=== PATIENT | female | born 1965 | race Caucasian/White ===

== ENCOUNTER → 2016-03-24 | Outpatient (CLI) | payer MEDICARE, OTHER ==
[2016-03-24 13:27] LABS: Aty Lym Flag Slight; Basophils % (A) 0 %; CH 24.2; CHCM 28.5; Eosinophils # (A) 0.1 k/uL (0-0.7); Eosinophils % (A) 2 %; HCT 35.7 % (34.0-46.0); HDW 2.75; HGB 10.6 gm/dL (11.4-16.0); Hypochromasia Marked; Luc # (Auto) 0.16; Luc % (Auto) 5; Lymphocytes # (A) 0.5 k/uL (1.0-4.8); Lymphocytes % (A) 15 %; MCH 25.3 pg (25.0-35.0); MCHC 29.6 g/dL (31.0-37.0); MCV 85.4 fL (80.0-100.0); Mean Platelet Volume 6.2; Monocytes # (A) 0.6 k/uL (0-1.0); Monocytes % (A) 18 %; Neutrophils # (A) 1.9 k/uL (1.3-7.7); Neutrophils % (A) 60 %; RBC 4.18 m/uL (3.80-5.40); WBC 3.2 k/uL (3.8-10.6); WBC (Perox) 3.23
[2016-03-24 13:29] LABS: Appearance,Urine Clear (Clear); Bilirubin,Urine Negative (Negative); Glucose,Urine (UA) Negative (Negative); Ketones,Urine Negative (Negative); Leukocyte Esterase,Urine Negative (Negative); Nitrite,Urine Negative (Negative); Protein,Urine Negative (Negative); Specific Gravity,Urine 1.012 (1.001-1.035); UA Billing (MACRO vs. MICRO) CHEM; Urobilinogen,Urine <2.0 mg/dL (<2.0)
[2016-03-24 13:45] LABS: Anion Gap 10 mmol/L; Blood Urea Nitrogen 17 mg/dL (7-17); Carbon Dioxide 27 mmol/L (22-30); Chloride 106 mmol/L (98-107); Glucose 70 mg/dL (74-99); Non-African American GFR(MDRD) >60 (>60 ml/min/1.73 sqM); Potassium 4.7 mmol/L (3.5-5.1); Sodium 143 mmol/L (137-145)
[2016-03-24 14:21] LABS: Manual Review Performed
== END | disposition home or self-care (01) ==
LOC: LABPAT 13:02
PROVIDERS: ATTEND Urology
DX: Z01.812 Encounter for preprocedural laboratory examination (principal); N39.3 Stress incontinence (female) (male); G35 Multiple sclerosis; R35.0 Frequency of micturition; Z79.899 Other long term (current) drug therapy
CPT/HCPCS: 80048; 81003; 85025; 87086

== ENCOUNTER 2016-03-30 10:00 | Day surgery (SDC) | payer MEDICARE, OTHER ==
[2016-03-25 11:26] VITALS: BMI 30.7
[~2016-03-30 10:00] MED LIST: AMPICILLIN 1,000 MG in SODIUM CHLORIDE 0.9% 50 ML IVPB ONE; GENTAMICIN 130 MG in SODIUM CHLORIDE 0.9% 100 ML IVPB ONE; HYDROmorphone 1 MG/ML 1 ML SYRINGE IVP PRN; LACTATED RINGERS 1,000 ML IV SCH; LIDOCAINE 1% 20 ML VIAL (10MG/ML) FOR IV START INTRADERMA PRN; ONDANSETRON 4 MG/2 ML VIAL IVP ONE
[2016-03-30] MEDS ORDERED: MIDAZOLAM 2 MG/2 ML VIAL ONE (11:55)
[2016-03-30] MEDS ORDERED: LIDOCAINE 1% INJ 10MG/ML (20 ML MDV) ONE (11:55)
[2016-03-30] MEDS ORDERED: SUCCINYLCHOLINE CHLORIDE 100 MG/5 ML SYR IV ONE (11:55)
[2016-03-30] MEDS ORDERED: PROPOFOL 10 MG/ML 20 ML VIAL IV ONE (11:55)
[2016-03-30] MEDS ORDERED: fentaNYL (PF) 50 MCG/ML 2 ML AMP ONE (11:55)
[2016-03-30] MEDS ORDERED: VASOPRESSIN 20 UNIT/ML 1 ML VIAL SQ ONE (12:19)
[2016-03-30] MEDS ORDERED: BACITRACIN 500 UNIT/GM OINT 28.4 GM TUBE TOPICAL ONE (12:54)
[2016-03-30] MEDS ORDERED: IBUPROFEN 800 MG TAB PO PRN (13:00)
[2016-03-30] MEDS ORDERED: ONDANSETRON 4 MG/2 ML VIAL IVP PRN (13:01)
--- NOTE | 2016-03-30 13:10 | P.OP ---
Date of Procedure: 03/30/16 Preoperative Diagnosis: Stress urinary incontinence, neurogenic bladder secondary to multiple sclerosis Postoperative Diagnosis: Same Procedure(s) Performed: Pubovaginal sling with cystoscopy Anesthesia: NOLAN Surgeon: Gordon Leach Estimated Blood Loss (ml): 50 Pathology: none sent Condition: stable Disposition: PACU Indications for Procedure: The patient is a 50-year-old female with a neurogenic bladder secondary to multiple sclerosis. She requires cleaning intermittent catheterization and as for several years. She has documented stress incontinence. She comes for a pubovaginal sling for her incontinence. This method was chosen because of the intermittent catheterization and the risk of infecting a transvaginal tape Description of Procedure: Patient is brought to the operating suite and given a successful general endotracheal anesthesia. She's placed lithotomy position with a sterile prep and drape. The labor sewn laterally to 0 silk. A batch packing was placed. The anterior vaginal mucosa was elevated off the submucosa with a mixture of 20 units of vasopressin in 200 mL of saline. A Kirk cath is introduced sterilely. Pfannenstiel incision is made. I dissect down the rectus fascia. She has had previous surgery in the rectus fascia therefore I cleaned off superiorly to inferiorly. I take a segment of rectus fascia and a vertical fashion to dates 2 cm wide by 8 cm long. I then closed the rectus fascia with 0 PDS. I then opened the anterior vaginal mucosa dissect lateral the bladder neck with Metzenbaum scissors bilaterally. I opened the endopelvic fascia. I then passed a me needles at the corners of the pubis down into the vaginal space bilaterally making sure not to injure the bladder. I had previously whipstitched 0 Prolene through the ends of the disc graft. I attached the Prolene stitches to the Stamey needles and pull the stitches back above the rectus fascia. I then secured the graft and the submucosal area at the level of the bladder neck. I tacked the stone with 3-0 Vicryl. I then removed the Kirk and inspect the bladder there is no injury. I then elevate the stitches over the rectus fascia and watch the bladder neck coapted and control the leakage. I then closed the vaginal mucosa with a running 2-0 Vicryl. I tied the Prolene stitches to one another over the rectus fascia. I closed the Pfannenstiel incision with a 3-0 Vicryl and a 4-0 Vicryl. A vaginal pack is place. The Kirk catheter urine is clear. The labial stitches are removed. The patient is awake and returned recovery room good condition. Blood loss is 50 mL.
[2016-03-30] MEDS ORDERED: LACTATED RINGERS 1,000 ML IV ONE ×2 (13:42)
[2016-03-30] MEDS: MORPHINE SULFATE 2 MG/ML SYRINGE IVP PRN ×2 (15:28→21:04)
[2016-03-30] MEDS: HYDROcodone/APAP 7.5-325MG 1 EACH TAB PO PRN (16:11)
[2016-03-30] MEDS: OXYBUTYNIN CHLORIDE 5 MG TAB PO SCH ×2 (17:11→20:55)
[2016-03-30] MEDS: DEXTROSE 5%-0.45% NACL 1,000 ML IV SCH (17:11)
[2016-03-30] MEDS: IMIPRAMINE 10 MG TAB PO SCH ×2 (17:11→20:53)
[2016-03-30] MEDS: KETOROLAC 30 MG/ML 1 ML VIAL IVP PRN (17:18)
[2016-03-30] MEDS: GABAPENTIN 400 MG CAP PO SCH (20:52)
[2016-03-31] MEDS: KETOROLAC 30 MG/ML 1 ML VIAL IVP PRN ×2 (00:08→07:29)
[2016-03-31] MEDS: HYDROcodone/APAP 7.5-325MG 1 EACH TAB PO PRN ×2 (04:35→12:02)
[2016-03-31] MEDS: DEXTROSE 5%-0.45% NACL 1,000 ML IV SCH (04:40)
[2016-03-31] MEDS ORDERED: PANTOPRAZOLE 40 MG TABLET PO SCH (07:30)
[2016-03-31 07:37] VITALS: BP 110/75; PULSE 113; RESP 18; TEMP 97.9
[2016-03-31] MEDS: GABAPENTIN 400 MG CAP PO SCH (08:27)
[2016-03-31] MEDS: OXYBUTYNIN CHLORIDE 5 MG TAB PO SCH (08:27)
[2016-03-31] MEDS: IMIPRAMINE 10 MG TAB PO SCH (08:27)
[2016-03-31] MEDS ORDERED: [UNRECOGNIZED DRUG - OTHER] PO SCH (09:00)
[2016-03-31] MEDS ORDERED: DULoxetine HCL 60 MG CAPSULE.DR PO SCH (09:00)
[2016-03-31] MEDS ORDERED: LISINOPRIL-HCTZ 10-12.5 MG 1 EACH TAB PO SCH (09:00)
--- NOTE | 2016-03-31 11:29 | P.DS ---
Providers Attending physician: Gordon Leach Primary care physician: [facility] Course: The patient was brought into the hospital 03/30/2016 a cystoscopy and pubovaginal sling for stress urinary incontinence. She underwent this without difficulty. Postoperatively she had some moderate pain as expected from the autologous graft from her rectus fascia. She voided some with a 300 mL residual which she catheterizes without difficulty. Her pain is under control and she wishes to be discharged home. She'll be discharged home care of family limited activity. She'll follow-up in the office in one week. She'll continue with clean intermittent catheterization as needed. Pain medicine with [place] prescribed. Condition is good diet is regular activities Limited. Patient Condition at Discharge: Good Plan - Discharge Summary New Discharge Prescriptions: Hydrocodone/Acetaminophen [[place] 7.5-325] 1 each PO Q4HR PRN #30 tab PRN Reason: Pain Control Discharge Medication List Imipramine HCl [Tofranil] 10 mg PO TID 01/15/14 [History] Oxybutynin Chloride [Ditropan] 5 mg PO TID 01/15/14 [History] Gabapentin [Neurontin] 800 mg PO BID 12/21/15 [History] Hydrocodone/Acetaminophen [[place] 7.5-325] 1 tab PO Q6HR PRN 12/21/15 [History] Ibuprofen [Motrin] 800 mg PO TID PRN 12/21/15 [History] Lisinopril-Hctz 10-12.5 mg [Zestoretic 10-12.5] 1 tab PO QAM 12/21/15 [History] DULoxetine HCL 60 mg PO QAM 03/25/16 [History] Multivitamins, Thera [Multivitamin] 1 each PO DAILY 03/25/16 [History] Omeprazole 40 mg PO QAM 03/25/16 [History] L.acidoph,Paracasei, B.lactis [Probiotic] 1 each PO DAILY 03/29/16 [History] Fingolimod HCl [[place]en[place]] 1 cap PO DAILY 03/30/16 [History] Hydrocodone/Acetaminophen [[place] 7.5-325] 1 each PO Q4HR PRN #30 tab 03/31/16 [ Rx] Follow up Appointment(s)/Referral(s): Gordon Leach MD [STAFF PHYSICIAN] - 1 Week
== END 2016-03-31 13:27 | disposition home or self-care (01) ==
LOC: OR 10:00 → 6PED 13:11 → OR 03-31 13:27
PROVIDERS: ATTEND Urology
DX: N31.8 Other neuromuscular dysfunction of bladder (principal); N39.3 Stress incontinence (female) (male); G35 Multiple sclerosis; I10 Essential (primary) hypertension; M79.7 Fibromyalgia; F41.9 Anxiety disorder, unspecified; Z79.899 Other long term (current) drug therapy; Z79.891 Long term (current) use of opiate analgesic
CPT/HCPCS: 57288; J2250; J2405; J2001; J3010; J1885 ×2; J1580; J0290; J2270; J0330; J2704

== ENCOUNTER → 2016-06-06 | Outpatient (CLI) | payer MEDICARE, OTHER ==
--- NOTE | 2016-06-06 15:45 | MR ---
MR lumbar spine wo con LBP radiating down rt leg, no trauma/surgery; Prior MR/xray on pacs Multiplanar, multiecho imaging of the lumbar spine was obtained without contrast on a 3 Michaela magnet. REFERENCE: Previous study dated 06/13/2011. FINDINGS: Paraspinal soft tissues are normal. There is a moderate levoscoliosis. This has worsened slightly from the previous study. There are degenerative grade 1 listhesis of L3 on L4 and L4 and L5. These were not present previously . Vertebral body height and alignment otherwise normal. Cord signal is normal. The conus ends normall y at the level of the superior endplate of L1. At T12-L1, there is capsulitis within the facets. At L1-2, there is hypertrophic change and capsulitis within the facets. At L2-3, there is disc space loss and disc desiccation. There is a broad-based disc displacement exte nding into the inner vertebral foramina causing mild, bilateral intervertebral foraminal narrowing, w orse on the right than the left. There is hypertrophic change and capsulitis within the facets. At L3-4, the intervertebral foramina are reasonably well-maintained. There is disc space loss and dis c desiccation. There is a broad-based disc displacement. There is a grade 1 spondylolisthesis. There is a pseudodisc. There are marked hypertrophic changes and capsulitis within the facets. At L4-5, there is a degenerative grade 1 spondylolisthesis. There is an associated pseudodisc. There is disc space loss. There is bilateral intervertebral foraminal narrowing, worse on the right than th e left. There are marked hypertrophic changes and capsulitis within the facets. At L5-S1, there is disc space loss and disc desiccation. The intervertebral foramina are well maintai vannessa. There is a left paracentral disc displacement mildly deforming the thecal sac. There is hypertro phic change and capsulitis within the facets. IMPRESSION: 1. DIFFUSE DEGENERATIVE DISC DISEASE AND FACET ARTHROPATHY. 2. MULTILEVEL INTERVERTEBRAL FORAMINAL NARROWING. 3. DEGENERATIVE GRADE 1 LISTHESIS OF L3 ON L4 AND L4 ON L5. 4. LEVOSCOLIOSIS. 5. THE APPEARANCE OF THE SPINE HAS WORSENED CONSIDERABLY FROM THE PREVIOUS STUDY.
== END ==
LOC: RADMRIMAIN 14:30
PROVIDERS: ATTEND Psychiatry & Neurology Pain Medicine
DX: M51.36 Other intervertebral disc degeneration, lumbar region (principal); M46.96 Unspecified inflammatory spondylopathy, lumbar region; M51.37 Other intervertebral disc degeneration, lumbosacral region; M99.73 Connective tissue and disc stenosis of intervertebral foramina of lumbar region; M43.16 Spondylolisthesis, lumbar region
CPT/HCPCS: 72148

== ENCOUNTER → 2016-07-05 | Outpatient (CLI) | payer MEDICARE, OTHER ==
--- NOTE | 2016-07-05 16:13 | XR ---
EXAMINATION TYPE: XR foot complete RT, XR ankle complete RT DATE OF EXAM: 07/05/2016 4:04 PM CLINICAL HISTORY: pain TECHNIQUE: Frontal, lateral and oblique images of the right foot and ankle are obtained. COMPARISON: None. FINDINGS: There is no acute fracture/dislocation evident. Ankle mortise is intact. Screw fixation is noted to involve the midfoot at the level of the first cuneiform extending into the base of the seco nd metatarsal. Degenerative midfoot narrowing is seen. The overlying soft tissue appears unremarkable . IMPRESSION: There is no acute fracture or dislocation. ICD 10 NO FRACTURE, INITIAL EVALUATION
== END | disposition home or self-care (01) ==
LOC: RADXRMAIN 15:42
PROVIDERS: ATTEND Psychiatry & Neurology Pain Medicine
DX: M25.571 Pain in right ankle and joints of right foot (principal)

== ENCOUNTER → 2016-07-26 | Outpatient (CLI) | payer MEDICARE, OTHER ==
--- NOTE | 2016-07-26 09:18 | CT ---
EXAMINATION TYPE: CT abdomen pelvis w con DATE OF EXAM: 07/26/2016 8:59 AM COMPARISON: NONE HISTORY: Incisional hernia CT DLP: 1125.70 mGycm CONTRAST: CT scan of the abdomen and pelvis is performed with Oral Contrast and with IV Contrast, patient injec corrina with 100 mL of Omnipaque 300. FINDINGS: LUNG BASES-: No visible nodule. No infiltrate. Calcified subcarinal lymph nodes. Breast implants. Be intact. LIVER/GB: Cholecystectomy clips are in place. Nonspecific 1.1 cm hypoattenuating lesion at the dome of the liver may reflect a small cyst. Consider ultrasound correlation. Mild intrahepatic biliary du ctal prominence likely postoperative in nature. PANCREAS: No inflammation. No distinct mass. SPLEEN: No splenic enlargement. No lesion seen. ADRENALS: No nodule. No thickening. KIDNEYS/BLADDER: No hydronephrosis. No nephrolithiasis. No disctinct renal mass. Urinary bladder g rossly unremarkable. BOWEL: Moderate fecal stasis. Normal bowel caliber. No inflammation. GENITAL ORGANS: No gross abnormality. LYMPH NODES: No greater than 1cm abdominal or pelvic lymph nodes are appreciated. AORTA: No significant abnormality. OSSEOUS STRUCTURES: No significant abnormality is seen. OTHER: Low anterior abdominal midline postoperative change and small seroma measuring 2.1 cm. Small f at-containing umbilical hernia. No definite incisional hernia appreciated at this time. Multiple supe rficial subcutaneous varices noted. IMPRESSION: 1. Low anterior abdominal midline postoperative change and small seroma measuring 2.1 cm. 2.Small fat-containing umbilical hernia. No definite incisional hernia appreciated.
== END | disposition home or self-care (01) ==
LOC: RADCTMAIN 08:13
PROVIDERS: ATTEND Surgery
DX: K44.9 Diaphragmatic hernia without obstruction or gangrene (principal); S30.1XXA Contusion of abdominal wall, initial encounter
CPT/HCPCS: 74177; Q9967

== ENCOUNTER → 2016-08-02 | Outpatient (CLI) | payer MEDICARE, OTHER ==
--- NOTE | 2016-08-03 09:08 | WWHP ---
DATE OF DICTATION: 08/02/16. CHIEF COMPLAINT: Patient is here for her routine gynecologic exam and mammogram. HPI: This is a 50-year-old G3, P2-0-1-2 with an LMP of 2004. She is status post endometrial ablation in 2004 and has been amenorrheic since then. She denies any significant hot flashes. He has been using condoms for control. It has been about 5 years since her last pelvic exam. PAST MEDICAL HISTORY: Multiple sclerosis, chronic hypertension, obesity, neurogenic bladder, gastroesophageal reflux disease, depression. Her right hip arthritis, elevated liver enzymes and umbilical hernia. MEDICATIONS: Cymbalta 60 mg daily. Omeprazole 40 mg daily. Imipramine 10 mg t.i.d., Ditropan 5 mg t.i.d., ibuprofen 800 mg t.i.d., lisinopril with hydrochlorothiazide 100/12.5 mg daily. Remeron 15 mg daily p.r.n. [place] 7.5 mg t.i.d. p.r.n. ALLERGIES: No known drug allergies. PAST SURGICAL HISTORY: Gastric bypass surgery in 1999 Abdominoplasty in 2003, bilateral breast implants in 2003. Bladder sling procedure 2016, cholecystectomy in the past. POST OB HISTORY: One voluntary termination of followed by two vaginal deliveries. PAST [employer] HISTORY: She is status post endometrial ablation in 2004 and has been amenorrheic since then. She has no history of STDs. SOCIAL HISTORY: She denies tobacco, alcohol, and drug use. She is and has been with her boyfriend since 2016. She is sexually active. 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 FAMILY HISTORY: Father has coronary artery disease, several aunts also had MIs. Son has ulcerative colitis. REVIEW OF SYSTEMS: She believes she has gained close to 30 pounds over the last year. She denies respiratory, cardiac, or GI problems. PHYSICAL EXAM: Blood pressure 120/78. Height 5 feet 6 inches. Weight 215 pounds. Temperature 96.7, pulse 89 is a well-developed, well-nourished white female who is alert and oriented x3 in no acute distress. HEENT is within normal limits. NECK: There is palpable lymph node to the left of the midline measuring approximately 6 mm this is smooth and mobile and nontender. She states she has had this for more than one year. CHEST AND LUNGS: Clear to auscultation. HEART: Regular rate and rhythm. Breasts are consistent with bilateral implants. There are no masses or tenderness. Axillary exam is negative for adenopathy. BACK: Negative for CVA tenderness. ABDOMEN: Soft, nontender, without palpable masses. PELVIC EXAM: External genitalia within normal limits. Cervix and vagina appear normal without significant atrophy and no significant prolapse is noted. The uterus is midposition, nongravid size and nontender. There are no palpable adnexal masses or tenderness. Rectovaginal exam is negative for mass or tenderness and is negative for occult blood. EXTREMITIES: Nontender. IMPRESSION: A 50-year-old female with amenorrhea secondary for endometrial ablation. Possible perimenopausal menopause. PLAN: 1. Pap smear was performed. 2. Self breast examination was discussed. 3. Mammogram will be done today. 4. FSH will be drawn. We will use this to determine if she is menopausal. If it is less than 50. I will recommend that she continue to use contraception such as condoms. 5. She will return in one year.
--- NOTE | 2016-08-04 09:22 | MM ---
Reason for exam: screening (asymptomatic). Baseline mammogram. History: Retro-pectoral silicone gel implants in both breasts, 2001. Took hormonal contraceptives beginning at age 16. Physical Findings: Dr. Arreaga did not find any significant physical abnormalities on exam. MG Screening Mammo Implant/CAD Bilateral CC and MLO view(s) were taken. Port on left. There is no discrete abnormality. Bilateral implants. These results were verbally communicated with the patient and result sheet given to the patient on 08/02/16. ASSESSMENT: Negative, BI-RAD 1 RECOMMENDATION: Routine screening mammogram of both breasts in 1 year.
== END | disposition home or self-care (01) ==
LOC: WWCWWP 13:46
PROVIDERS: ATTEND Obstetrics & Gynecology
DX: Z12.31 Encounter for screening mammogram for malignant neoplasm of breast (principal); N91.1 Secondary amenorrhea
CPT/HCPCS: 83001; 36415; G0202

== ENCOUNTER → 2016-12-01 | Outpatient (CLI) | payer MEDICARE, OTHER ==
[2016-12-01 15:46] LABS: Anisocytosis Slight; Basophils % (A) 0 %; CH 22.9; CHCM 29.7; Eosinophils % (A) 1 %; HCT 30.3 % (34.0-46.0); HGB 8.9 gm/dL (11.4-16.0); Hypochromasia Marked; Luc # (Auto) 0.16; Luc % (Auto) 4; Lymphocytes # (A) 0.5 k/uL (1.0-4.8); Lymphocytes % (A) 11 %; MCH 22.9 pg (25.0-35.0); MCHC 29.5 g/dL (31.0-37.0); MCV 77.4 fL (80.0-100.0); Mean Platelet Volume 7.8; Microcytosis Slight; Monocytes # (A) 0.4 k/uL (0-1.0); Monocytes % (A) 9 %; Neutrophils # (A) 3.4 k/uL (1.3-7.7); Neutrophils % (A) 76 %; RBC 3.91 m/uL (3.80-5.40); RDW 16.2 % (11.5-15.5); WBC 4.5 k/uL (3.8-10.6); WBC (Perox) 4.76
== END | disposition home or self-care (01) ==
LOC: LABPAT 14:26
PROVIDERS: ATTEND Obstetrics & Gynecology
DX: Z01.810 Encounter for preprocedural cardiovascular examination (principal); Z01.812 Encounter for preprocedural laboratory examination; I10 Essential (primary) hypertension; C54.1 Malignant neoplasm of endometrium
CPT/HCPCS: 36415; 85025; 93005

== ENCOUNTER → 2016-12-01 | Outpatient (CLI) | payer MEDICARE, OTHER ==
[2016-12-01 16:19] LABS: Hepatitis B Surface Ag Index 0.05
[2016-12-01 19:35] LABS: Hepatitis B Surface Antibody Non-Reactive (Non-Reactive)
== END | disposition home or self-care (01) ==
LOC: LABWHC1 14:29
PROVIDERS: ATTEND Psychiatry & Neurology Neurology
DX: G35 Multiple sclerosis (principal); Z02.89 Encounter for other administrative examinations
CPT/HCPCS: 36415; 86704; 86705; 86706; 87340

== ENCOUNTER 2016-12-06 07:58 | Day surgery (SDC) | payer MEDICARE, OTHER ==
[2016-12-02 11:03] VITALS: BMI 34.7
--- NOTE | 2016-12-05 17:22 | HP ---
HISTORY AND PHYSICAL HISTORY OF PRESENT ILLNESS: The patient is a 51-year-old 3, para 2-0-1-2 admitted to the office initially with findings of an ASCUS, positive HPV, Pap smear. She underwent colposcopy which was negative. However endocervical curettage done at that time, demonstrated CIN2. Given the findings of at least moderate dysplasia, the patient was counseled regarding the need for further sampling with surgical biopsy and agrees to proceed with cold knife conization of the cervix. PAST MEDICAL HISTORY: Significant for arthritis, asthma, depression, reflux, hypertension, multiple sclerosis, neurogenic bladder, obesity and umbilical hernia. PAST SURGICAL HISTORY: History significant for abdominal plasty in 2001. She additionally had a breast augmentation and lift as well as a [place] suburethral sling. She has additionally undergone gastric bypass in the past. There was also a D&C, as well as cholecystectomy. There were no apparent anesthetic concerns. OBSTETRICAL HISTORY: 3, para 2-0-1-2 with 2 term vaginal deliveries without complications. Current method of contraception is condoms. GYNECOLOGIC HISTORY: History is unremarkable with no history of any infections to include STDs. FAMILY HISTORY: Noncontributory. SOCIAL HISTORY: The patient is and a nonsmoker. She reports occasional alcohol. Denies any other social concerns. CURRENT MEDICATIONS: Include: 1. Cymbalta 60 mg daily. 2. Ibuprofen 3 times daily p.r.n. 3. Imipramine 10 mg daily. 4. Lisinopril/hydrochlorothiazide 10/12.5 mg daily. 5. Neurontin 800 mg 3 times daily. 6. Omeprazole 40 mg daily. 7. Remeron 15 mg q.h.s. p.r.n. ALLERGIES: No known drug allergies. REVIEW OF SYSTEMS: Is confined to history of present illness. PHYSICAL EXAMINATION: Vital signs are stable. The patient is afebrile. In general, this is a well- developed, well-nourished, white female, in no acute distress. Her heart has regular rhythm and rate without murmur. Her lungs are clear to auscultation bilaterally in all weems. Her abdomen is nondistended, has normoactive bowel sounds, soft, nontender, and without any palpable masses, hepatosplenomegaly, or hernias. Her extremities are without any cyanosis, clubbing, or edema. Nontender to palpation. Pelvic examination demonstrates normal external genitalia and the BUS with normal vaginal mucosa to inspection and palpation. There is no cervical motion tenderness. Uterus is normal in size and shape without any apparent masses. The adnexa are normal. Nontender without mass bilaterally. ASSESSMENT AND PLAN: Moderate endocervical dysplasia: We have discussed options and she has agreed to undergo cold knife conization of the cervix. Risks and complications of the procedure have been discussed at length including risks for bleeding, bleeding requiring transfusion, infection, and injury to local structures, specifically to include cervical stenosis or incompetence. She has understood all this and agreed to proceed and we are scheduled for the morning of December 06, 2016. MMODL / IJN: [id number] /
[~2016-12-06 07:58] MED LIST changes: -AMPICILLIN 1,000 MG in SODIUM CHLORIDE 0.9% 50 ML IVPB ONE; +DEXAMETHASONE SOD PHOSPHATE 10 MG/ML 1 ML VIAL IV ONE; -GENTAMICIN 130 MG in SODIUM CHLORIDE 0.9% 100 ML IVPB ONE; +MIDAZOLAM 2 MG/2 ML VIAL IV PRN; +Pre Op ABX Message 1 EACH MISC MISCELLANE ONE; +SCOPOLAMINE 1.5MG/72HR PATCH TRANSDERM ONE
[2016-12-06] MEDS ORDERED: Acetaminophen-Codeine 300-30mg TAB PO PRN ×2 (08:31)
[2016-12-06] MEDS ORDERED: diphenhydrAMINE 50 MG/ML 1 ML VIAL IVP PRN (08:31)
[2016-12-06] MEDS ORDERED: METOCLOPRAMIDE 5 MG/ML 2 ML VIAL IVP PRN (08:31)
[2016-12-06] MEDS ORDERED: ONDANSETRON 4 MG/2 ML VIAL IVP PRN (08:31)
[2016-12-06] MEDS ORDERED: SIMETHICONE 80 MG CHEWABLE PO PRN (08:31)
[2016-12-06] MEDS ORDERED: KETOROLAC 30 MG/ML 1 ML VIAL IVP PRN (08:31)
[2016-12-06] MEDS ORDERED: LACTATED RINGERS 1,000 ML IV SCH (08:45)
[2016-12-06] MEDS ORDERED: SUCCINYLCHOLINE CHLORIDE 100 MG/5 ML SYR IV ONE (09:02)
[2016-12-06] MEDS ORDERED: MIDAZOLAM 2 MG/2 ML VIAL ONE (09:02)
[2016-12-06] MEDS ORDERED: ePHEDrine SULFATE/0.9% NACL/PF 50 MG/5 ML SYRINGE IV ONE (09:02)
[2016-12-06] MEDS ORDERED: fentaNYL (PF) 50 MCG/ML 2 ML AMP ONE (09:02)
[2016-12-06] MEDS ORDERED: LIDOCAINE 1% INJ 10MG/ML (20 ML MDV) ONE (09:02)
[2016-12-06] MEDS ORDERED: PROPOFOL 10 MG/ML 20 ML VIAL IV ONE (09:02)
[2016-12-06] MEDS ORDERED: PHENYLEPHRINE-0.9% NACL SYG 1 MG/10 ML SYRINGE ONE (09:02)
[2016-12-06] MEDS ORDERED: FERRIC SUBSULFATE (MONSELS) JAR TOPICAL ONE (09:26)
[2016-12-06] MEDS ORDERED: IODINE/POTASS IOD (LUGOLS) BTL TOPICAL ONE (09:32)
[2016-12-06] MEDS ORDERED: LACTATED RINGERS 1,000 ML IV ONE (09:37)
--- NOTE | 2016-12-06 09:43 | P.OP ---
Date of Procedure: 12/06/16 Preoperative Diagnosis: #1. Endocervical moderate dysplasia Postoperative Diagnosis: Same Procedure(s) Performed: Knife conization of the cervix Anesthesia: PAMA Surgeon: Sage Sherwood Estimated Blood Loss (ml): 5 IV fluids (ml): 800 Urine output (ml): 40 Pathology: other (Cervical cone) Condition: stable Disposition: PACU Operative Findings: There was no ectocervical staining of the cervix with Lugol's iodine present. There was adequate cervical descensus for vaginal hysterectomy should become necessary in the future. The cervical cone was removed to a depth of approximately 2 cm x 1.5 cm x 1.5 cm across in each dimension. The endocervical canal was noted to be within the center. Description of Procedure: The patient was prepped and draped in usual fashion after general endotracheal anesthesia was admission by the anesthesiologist. A weighted speculum was placed in the bladder draining approximate 40 mL of clear scott urine. The cervix was grasped with a single-tooth tenaculum allowing placement of surgical stay sutures from 10:00 to 8:00 and 2:00 to 4:00 at the cervical vaginal junction on each side where there were firmly tied down using 0 Vicryl. The stay sutures were used for traction and Lugol's iodine used to paint the entire cervix. There was no ectocervical staining noted. The patient has undergone an endometrial ablation in the past and I was unable to place the uterine sound safely. As result from the cone was freehanded. A margin was taken around the opening of the cervix to a depth of approximately 2 cm circumferentially. An Allis clamp was applied to the cone from anterior to posterior and a second Allis utilized to elevate the anterior lip. This allowed me to put downward traction on the cone and identify the base which was then transected with the scalpel. The colon was not marked. The endocervical canal was noted to be in the center of the cone and it was intact. The base of the cone was then cauterized from the deep margin to the ectocervical margin using ball cautery. One large Q-tip of Monsel solution was then placed within the bed and left in place for approximately 1 minute. Once removed there was no ongoing bleeding. The stay sutures were left in place but trimmed short. Estimated blood loss for the entire case was less than 5 mL. There were no complications. All sponge, instrument, and needle counts were correct. The patient tolerated the procedure well and proceeded to the recovery room in stable condition. The patient is a candidate for vaginal instructed he should it become necessary in the future.
[2016-12-06 09:58] VITALS: TEMP 97
[2016-12-06 10:45] VITALS: RESP 18
[2016-12-06 11:01] VITALS: BP 131/73; PULSE 90
== END 2016-12-06 11:25 | disposition home or self-care (01) ==
LOC: OR 07:58
PROVIDERS: ATTEND Obstetrics & Gynecology
DX: N87.1 Moderate cervical dysplasia (principal); E66.9 Obesity, unspecified; F32.9 Major depressive disorder, single episode, unspecified; G35 Multiple sclerosis; I10 Essential (primary) hypertension; J45.909 Unspecified asthma, uncomplicated; K21.9 Gastro-esophageal reflux disease without esophagitis; Z98.84 Bariatric surgery status; Z79.899 Other long term (current) drug therapy; M79.7 Fibromyalgia
CPT/HCPCS: 57520; 81025; 88342; 88307; J2250; J1100; J2405; J2001; J3010; J2370; J0330; J2704

== ENCOUNTER → 2017-02-17 | Outpatient (CLI) | payer MEDICARE, OTHER ==
[2017-02-17 17:21] LABS: Anisocytosis Slight; Aty Lym Flag Slight; CH 22.1; CHCM 27.9; HCT 31.3 % (34.0-46.0); HDW 2.85; HGB 8.7 gm/dL (11.4-16.0); Hypochromasia Marked; MCH 22.2 pg (25.0-35.0); MCV 79.5 fL (80.0-100.0); Mean Platelet Volume 6.6; Microcytosis Slight; RBC 3.93 m/uL (3.80-5.40); RDW 16.3 % (11.5-15.5); WBC 2.2 k/uL (3.8-10.6); WBC (Perox) 2.14
[2017-02-17 17:40] LABS: ALT 39 U/L (9-52); AST 24 U/L (14-36); Alkaline Phosphatase 172 U/L (38-126); Anion Gap 9 mmol/L; Blood Urea Nitrogen 13 mg/dL (7-17); Calcium 9.3 mg/dL (8.4-10.2); Carbon Dioxide 22 mmol/L (22-30); Chloride 105 mmol/L (98-107); Glucose 88 mg/dL (74-99); Non-African American GFR(MDRD) >60 (>60 ml/min/1.73 sqM); Potassium 3.7 mmol/L (3.5-5.1); Sodium 136 mmol/L (137-145); Total Bilirubin 0.2 mg/dL (0.2-1.3); Total Protein 5.9 g/dL (6.3-8.2)
[2017-02-17 18:00] LABS: Add Differential Manual Differential
[2017-02-17 18:11] LABS: Nucleated Red Blood Cells 0 /100 WBC (0-0); Polychromasia Present; Total Cells Counted 100
[2017-02-24 08:32] LABS: Mis test requested (Blood) STRATIFY JCV AB
== END | disposition home or self-care (01) ==
LOC: LABWHC1 16:10
PROVIDERS: ATTEND Psychiatry & Neurology Pain Medicine
DX: G35 Multiple sclerosis (principal)
CPT/HCPCS: 36415; 80053; 80074; 82306; 84439; 84443; 84481; 85025

== ENCOUNTER → 2017-03-29 | Outpatient (CLI) | payer MEDICARE, OTHER ==
[2017-03-29 19:20] LABS: Folate, Serum 9.8 ng/mL
[2017-03-30 14:11] LABS: Vitamin B6 18 ug/L (5-50)
[2017-03-31 02:44] LABS: Vitamin B1 32 ug/L (38-122)
[2017-04-07 12:11] LABS: Nicotinuric Acid None Detected
== END | disposition home or self-care (01) ==
LOC: LABWHC1 13:16
PROVIDERS: ATTEND Psychiatry & Neurology Pain Medicine
DX: R53.83 Other fatigue (principal); G35 Multiple sclerosis
CPT/HCPCS: 36415; 82607; 82746; 84207; 84425; 84591

== ENCOUNTER → 2017-05-22 | Outpatient (CLI) | payer MEDICARE, OTHER ==
[2017-05-22 11:04] LABS: Blood Urea Nitrogen 13 mg/dL (7-17)
--- NOTE | 2017-05-22 21:37 | MR ---
EXAMINATION TYPE: MR brain/cspine wo DATE OF EXAM: 05/22/2017 COMPARISON: No prior MRI at this institution. If outside study becomes available an addendum may be i ssued. CT brain June 23, 2014. HISTORY: Multiple sclerosis. TECHNIQUE: Multiplanar, multisequence images of the cervical spine, brain and brainstem are all performed withou t IV contrast, IV contrast could not be given as IV access could not be obtained despite several atte mpts. Demyelinating disease protocol with additional Sagittal Flair sequence performed of the brain and brainstem and PD sagittal sequences of cervical spine all acquired. FINDINGS: BRAIN: T2 Lesions Present : Yes Approximate Number of Lesions: Difficult to accurately count due to confluent appearance at the the b and periventricular levels Locations Identified : No infratentorial lesions identified Size of Reference Lesion(s): 1. 0.8 cm x 0.3 cm x 0.6 cm on axial image 21 and sagittal image 24 high right frontal subcortical l esion Enhancing Lesion(s) Present: N/A T1 Hypointense Lesion(s) Present: Yes Change from Prior: N/A Diffusion weighted images demonstrate no evidence of a recent infarct or other diffusion abnormality. There is no worrisome extra-axial fluid collection. There is ventricular and sulcal prominence cons istent with diffuse age-related cerebral atrophy. Midline structures demonstrate normal morphology. The craniocervical junction appears within normal limits. Normal vascular flow voids are present.. The dural venous sinuses appear patent. The visuali zed sinuses are clear and the globes are intact. IMPRESSION: Moderate to severe nonspecific white matter changes most likely on basis of patient's kno wn multiple sclerosis. If outside study becomes available an addendum may be issued. C-SPINE: Exam noted suboptimal as there is significant motion artifact. Patient repeatedly fell aslee p and moved despite multiple warnings from technologist. FINDINGS: Sagittal images of the cervical spine show the craniocervical junction to appear within nor mal limits. The cervical and upper thoracic spinal cord is normal in caliber and course. Artifact ex amination limits evaluation for focal T2 hyperintense lesions . Vertebral alignment is anatomic. The vertebral body and intravertebral disk heights are normal. Tiny posterior disc herniations are seen C5-C6 and C6-C7 level on sagittal image 8. The bone marrow signal intensity is within normal limits. No significant spurring is seen. Axial images show significant artifact and rotation limiting evaluation for abnormal spinal cord lesi ons. Does appear to be broad based disc protrusion effacing anterior thecal sac at C5-C6 and C6-C7 le vels. There is mild to moderate bilateral neural foraminal narrowing at C5-C6 level. IMPRESSION: Suboptimal study as detailed above particularly for evaluating for demyelinating plaques.
== END | disposition home or self-care (01) ==
LOC: RADMRIMAIN 10:24
PROVIDERS: ATTEND Psychiatry & Neurology Pain Medicine
DX: R90.82 White matter disease, unspecified (principal); M50.222 Other cervical disc displacement at C5-C6 level; M99.73 Connective tissue and disc stenosis of intervertebral foramina of lumbar region
CPT/HCPCS: 36415; 70551; 72141; 82565; 84520

== ENCOUNTER 2017-06-14 08:24 | Inpatient (IN) | payer MEDICARE, OTHER ==
[2017-06-14] MEDS ORDERED: ONDANSETRON 4 MG/2 ML VIAL IVP STA (08:57)
[2017-06-14] MEDS ORDERED: SODIUM CHLORIDE 0.9% 1,000 ML IV STA (08:57)
[2017-06-14] MEDS ORDERED: MORPHINE SULFATE/PF 10MG/10ML VL IV STA (08:57)
[2017-06-14] MEDS ORDERED: methylPREDNISolone SOD SUCCI 125 MG/2 ML VIAL IV STA (09:09)
[2017-06-14 09:38] LABS: Anisocytosis Slight; Basophils % (A) 0 %; Eosinophils # (A) 0.1 k/uL (0-0.7); Eosinophils % (A) 1 %; HCT 35.5 % (34.0-46.0); Hypochromasia Moderate; Lymphocytes # (A) 0.5 k/uL (1.0-4.8); Lymphocytes % (A) 7 %; MCH 22.2 pg (25.0-35.0); MCV 71.7 fL (80.0-100.0); Mean Platelet Volume 6.2; Microcytosis Moderate; Monocytes # (A) 0.4 k/uL (0-1.0); Monocytes % (A) 6 %; Neutrophils # (A) 5.9 k/uL (1.3-7.7); Neutrophils % (A) 85 %; Platelet Count 474 k/uL (150-450); RBC 4.95 m/uL (3.80-5.40); RDW 16.4 % (11.5-15.5)
--- NOTE | 2017-06-14 09:44 | ED ---
General Adult HPI - General Chief complaint: Back Pain/Injury Stated complaint: MS flare up Time Seen by Provider: 06/14/17 08:43 Source: patient, RN notes reviewed Mode of arrival: wheelchair Limitations: no limitations - History of Present Illness Initial comments: Patient 51-year-old female seen with a past medical history for MS, chronic low back pain, presenting to the emergency room today with a chief complaint of increased pain in her lower back and right hip. She does not that she's had pain radiating to the right hip approximately the right knee. She states she's had this in the past. States that she's been following up with orthopedics seen both the surgeon and pain specialist there. Sensation schedule have a injection of the L3 area she has a herniated disc that was seen on MRI back in April 2017. Patient states that she is currently out of pain medication she was taking [place]. Patient admits that she has a history of MS. She states that when she has a infection she always gets a flareup of her MS. She states she noticed she had a cold sore in her nose and now on the upper lip on the right side. She states that this started a week ago. She states that she has had increased weakness to her lower legs bilaterally. She states she's had this in the past with her MS. She states she has seen neurologist Dr. Azul for this. Patient admits that she most recently follow-up orthopedics Dr. Blas this past Monday just 3 days ago. Patient states she was advised that she is weight for injection. Patient denies any bowel or bladder incontinence retention. She does admit that she straight caths herself due to neurogenic bladder issues. Patient does not that she had some diarrhea yesterday. She denies any abdominal pain. Admits to pain in her lower back. States she's had weakness in the legs and a few falls nothing recently. Patient mitts that she' s felt a pop in the right hip last week and this seemed to set some of these symptoms off as it got worse this past week. She states that it difficult time with any ambulation under her own power. 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 Patient denies any saddle anesthesia. Patient denies any other complaints or symptoms at this time. Denies any recent fever, chills, shortness breath, chest pain, nausea or vomiting, headache , isn't changes - Related Data Home Medications Medication Instructions Recorded Confirmed Imipramine HCl [Tofranil] 10 mg PO TID 01/15/14 06/14/17 Oxybutynin Chloride [Ditropan] 5 mg PO TID 01/15/14 06/14/17 Gabapentin [Neurontin] 800 mg PO TID 12/21/15 06/14/17 Ibuprofen [Motrin] 800 mg PO TID PRN 12/21/15 06/14/17 Lisinopril-Hctz 10-12.5 mg 1 tab PO QAM 12/21/15 06/14/17 [Zestoretic 10-12.5] DULoxetine HCL 60 mg PO QAM 03/25/16 06/14/17 L.acidoph,Paracasei, B.lactis 1 cap PO DAILY 03/29/16 06/14/17 [Probiotic] HYDROcodone/APAP 10-325MG [[place] 1 tab PO TID PRN 12/02/16 06/14/17 10-325] Fingolimod HCl [Gilenya] 0.5 mg PO DAILY 06/14/17 06/14/17 Allergies Allergy/AdvReac Type Severity Reaction Status Date / Time walnut Allergy Intermediate tongue and Verified 06/14/17 08:45 throat itch cantaloupe Allergy Intermediate tongue and Uncoded 06/14/17 08:34 throat itches Review of Systems ROS Statement: Those systems with pertinent positive or pertinent negative responses have been documented in the HPI. ROS Other: All systems not noted in ROS Statement are negative. Past Medical History Past Medical History: Asthma, Fibromyalgia, GERD/Reflux, Hypertension, Musculoskeletal Disorder, Pneumonia Additional Past Medical History / Comment(s): 06/24/14 Pt presented to [facility] ER via EMS on 06/23/14. She was found unresponsive at home. EMS gave narcan and she became somewhat responsive. OtHER HX: MS for 18 yrs, NEUROGENIC BLADDER( STRAIGHT CATHS), uti's, admission to [facility] 01/17-01/18/14 for uti with sepsis and altered mental status, possible metabolic encephalopathy 2ndary to medication OD and sepsis, hypokalemia and hyponatremia and elevated AST and ALT possible hepatitis, elevated CK possible acute rhabdomyolysis, and microcytic anemia. ADDITIONAL HX: lumbar DDD, gait dysfunction, History of Any Multi-Drug Resistant Organisms: None Reported Past Surgical History: Appendectomy, Bariatric Surgery, Bladder Surgery, Uterine Ablation Additional Past Surgical History / Comment(s): Mediport to left chest, Joseline-en- Y BARIATRIC SX 1999 with 165# wt loss, 2001 HAD TUMMY TUCK AND BREAST AUGMENTATION, PAIN INJECTIONS to back AT [facility]. 03/30/2016 pubovaginal sling, cystoscopy Past Anesthesia/Blood Transfusion Reactions: No Reported Reaction Past Psychological History: Anxiety, Bipolar, Depression Smoking Status: Never smoker Past Alcohol Use History: None Reported Past Drug Use History: None Reported, Marijuana, Opiates - Past Family History Father Family Medical History: Hypertension Additional Family Medical History / Comment(s): DAD IS 66. HAD CABG Mother Family Medical History: No Reported History Additional Family Medical History / Comment(s): MOM IS 62 General Exam - General Exam Comments Initial Comments: General: The patient is awake and alert, in no distress, and does not appear acutely ill. Eye: Pupils are equal, round and reactive to light, extra-ocular movements are intact. No nystagmus. There is normal conjunctiva bilaterally. No signs of icterus. Ears, nose, mouth and throat: There are moist mucous membranes and no oral lesions. Neck: The neck is supple, there is no tenderness or JVD. Cardiovascular: There is a regular rate and rhythm. No murmur, rub or gallop is appreciated. Respiratory: Lungs are clear to auscultation, respirations are non-labored, breath sounds are equal. No wheezes, stridor, rales, or rhonchi. Gastrointestinal: Soft, non-distended, non-tender abdomen without masses or organomegaly noted. There is no rebound or guarding present. No CVA tenderness. Musculoskeletal: Normal ROM, no tenderness. Strength 5/5. Sensation intact. Pulses equal bilaterally 2+. Neurological: A&O x 3. CN II-XII intact. Full range of motion in the upper extremities with strength 5/5 bilateral. Patient does show some weakness bilaterally to the lower extremities with leg extension. Her sensations are intact. Pulses are equal bilaterally 2+. Skin: Skin is warm and dry and no rashes or lesions are noted. Psychiatric: Cooperative, appropriate mood & affect, normal judgment. Limitations: no limitations Course Vital Signs 06/14/17 08:30 Temperature 98.8 F Pulse Rate 89 Respiratory 18 Rate Blood Pressure 144/55 O2 Sat by Pulse 100 Oximetry Medical Decision Making - Medical Decision Making Patient reexamined at this time shows no signs of distress. She states she is feeling better here in emergency room. She does not that she's had similar symptoms in the past with her MS with her bilateral leg weakness. She states this is not a new finding. She denies any bowel or bladder incontinence retention. She does do self cath for neurogenic bladder. She was cathed by nursing staff. Emergency room. Her urinalysis reviewed shows 15 white cells. She'll be given dose of antibiotics here in the emergency room of [facility] to cover for infection. She states that when she has infection her MS symptoms do become worse. She also admits to a herniated disc family left side. Her x- rays have been reviewed showing no acute abnormalities. Case discussed in detail with attending physician Dr. Penaloza. Patient will be admitted to the hospital for MS exacerbation. Given dose of solu Medrol 125 IV at this time. Patient's neurologist will be consult. Patient aware the plan. - Lab Data Result diagrams: 06/14/17 09:20 06/14/17 09:20 Lab Results 06/14/17 06/14/17 06/14/17 Range/Units 09:20 09:20 09:20 WBC 7.0 (3.8-10.6) k/uL RBC 4.95 (3.80-5.40) m/uL Hgb 11.0 L (11.4-16.0) gm/dL Hct 35.5 (34.0-46.0) % MCV 71.7 L (80.0-100.0) fL MCH 22.2 L (25.0-35.0) pg MCHC 31.0 (31.0-37.0) g/dL RDW 16.4 H (11.5-15.5) % Plt Count 474 H (150-450) k/uL Neutrophils % 85 % Lymphocytes % 7 % Monocytes % 6 % Eosinophils % 1 % Basophils % 0 % Neutrophils # 5.9 (1.3-7.7) k/uL Lymphocytes # 0.5 L (1.0-4.8) k/uL Monocytes # 0.4 (0-1.0) k/uL Eosinophils # 0.1 (0-0.7) k/uL Basophils # 0.0 (0-0.2) k/uL Hypochromasia Moderate Anisocytosis Slight Microcytosis Moderate PT 9.4 (9.0-12.0) sec INR 0.9 (<1.2) APTT 21.9 L (22.0-30.0) sec Sodium 136 L (137-145) mmol/L Potassium 2.6 L* (3.5-5.1) mmol/L Chloride 99 (98-107) mmol/L Carbon Dioxide 24 (22-30) mmol/L Anion Gap 13 mmol/L BUN 15 (7-17) mg/dL Creatinine 0.52 (0.52-1.04) mg/dL Est GFR (CKD-EPI)AfAm >90 (>60 ml/min/1.73 sqM) Est GFR (CKD-EPI)NonAf >90 (>60 ml/min/1.73 sqM) Glucose 113 H (74-99) mg/dL Calcium 10.0 (8.4-10.2) mg/dL Total Bilirubin 0.4 (0.2-1.3) mg/dL AST 34 (14-36) U/L ALT 41 (9-52) U/L Alkaline Phosphatase 268 H (38-126) U/L Total Protein 6.0 L (6.3-8.2) g/dL Albumin 3.6 (3.5-5.0) g/dL Urine Color Urine Appearance (Clear) Urine pH (5.0-8.0) Ur Specific [place] (1.001-1.035) Urine Protein (Negative) Urine Glucose (UA) (Negative) Urine Ketones (Negative) Urine Blood (Negative) Urine Nitrite (Negative) Urine Bilirubin (Negative) Urine Urobilinogen (<2.0) mg/dL Ur Leukocyte Esterase (Negative) Urine RBC (0-5) /hpf Urine WBC (0-5) /hpf Ur Squamous Epith Cells (0-4) /hpf Urine Bacteria (None) /hpf Hyaline Casts (0-2) /lpf Urine Mucus (None) /hpf 06/14/17 Range/Units 09:20 WBC (3.8-10.6) k/uL RBC (3.80-5.40) m/uL Hgb (11.4-16.0) gm/dL Hct (34.0-46.0) % MCV (80.0-100.0) fL MCH (25.0-35.0) pg MCHC (31.0-37.0) g/dL RDW (11.5-15.5) % Plt Count (150-450) k/uL Neutrophils % % Lymphocytes % % Monocytes % % Eosinophils % % Basophils % % Neutrophils # (1.3-7.7) k/uL Lymphocytes # (1.0-4.8) k/uL Monocytes # (0-1.0) k/uL Eosinophils # (0-0.7) k/uL Basophils # (0-0.2) k/uL Hypochromasia Anisocytosis Microcytosis PT (9.0-12.0) sec INR (<1.2) APTT (22.0-30.0) sec Sodium (137-145) mmol/L Potassium (3.5-5.1) mmol/L Chloride (98-107) mmol/L Carbon Dioxide (22-30) mmol/L Anion Gap mmol/L BUN (7-17) mg/dL Creatinine (0.52-1.04) mg/dL Est GFR (CKD-EPI)AfAm (>60 ml/min/1.73 sqM) Est GFR (CKD-EPI)NonAf (>60 ml/min/1.73 sqM) Glucose (74-99) mg/dL Calcium (8.4-10.2) mg/dL Total Bilirubin (0.2-1.3) mg/dL AST (14-36) U/L ALT (9-52) U/L Alkaline Phosphatase (38-126) U/L Total Protein (6.3-8.2) g/dL Albumin (3.5-5.0) g/dL Urine Color Yellow Urine Appearance Cloudy H (Clear) Urine pH 6.5 (5.0-8.0) Ur Specific [place] 1.025 (1.001-1.035) Urine Protein 1+ H (Negative) Urine Glucose (UA) Negative (Negative) Urine Ketones 1+ H (Negative) Urine Blood Negative (Negative) Urine Nitrite Negative (Negative) Urine Bilirubin 1+ H (Negative) Urine Urobilinogen 4.0 (<2.0) mg/dL Ur Leukocyte Esterase Moderate H (Negative) Urine RBC <1 (0-5) /hpf Urine WBC 15 H (0-5) /hpf Ur Squamous Epith Cells <1 (0-4) /hpf Urine Bacteria Occasional H (None) /hpf Hyaline Casts 9 H (0-2) /lpf Urine Mucus Few H (None) /hpf Disposition Clinical Impression: Multiple sclerosis exacerbation, Chronic back pain Disposition: ADMITTED IP TO THIS HOSP Condition: Stable Referrals: Mark Luis MD [Primary Care Provider] - 1-2 days Time of Disposition: 11:20
[2017-06-14 09:47] LABS: INR 0.9 (<1.2); Partial Thromboplastin Time 21.9 sec (22.0-30.0); Prothrombin Time 9.4 sec (9.0-12.0)
--- NOTE | 2017-06-14 09:51 | XR ---
EXAMINATION TYPE: XR lumbar spine 2 or 3V DATE OF EXAM: 06/14/2017 COMPARISON: 01/26/[address] 07/26/2016 HISTORY: 51-year-old female with pain TECHNIQUE: 3 views FINDINGS: Multiple surgical clips throughout the abdomen and upper pelvis and bowel staple lines as well. Nonsp ecific calcifications right greater than left abdomen. Degenerated levoconvex scoliosis centered on the lower lumbar spine. Hypertrophic facet arthropathy throughout with grade 1 retrolisthesis at L2-L3 and grade 1 anterolist hesis at L3-L4 and L4-L5. Moderate disc height loss at L5-S1. IMPRESSION: 1. Degenerated levoconvex scoliosis along the lower lumbar spine. 2. Hypertrophic facet arthropathy throughout with grade 1 spondylolisthesis from L2 through S1 levels . 3. No vertebral compression collapse. 4. Scattered punctate hyperdense material throughout the bowel. Findings could represent ingested med ication, multivitamins, iron, antacids, etc. Ingested heavy metals can also have this appearance. Cli nically correlate.
[2017-06-14 09:56] LABS: ALT 41 U/L (9-52); AST 34 U/L (14-36); Albumin 3.6 g/dL (3.5-5.0); Alkaline Phosphatase 268 U/L (38-126); Anion Gap 13 mmol/L; Blood Urea Nitrogen 15 mg/dL (7-17); Carbon Dioxide 24 mmol/L (22-30); Chloride 99 mmol/L (98-107); Glucose 113 mg/dL (74-99); Sodium 136 mmol/L (137-145); Total Bilirubin 0.4 mg/dL (0.2-1.3)
[2017-06-14 10:02] LABS: Potassium 2.6 mmol/L (3.5-5.1)
[2017-06-14 10:07] LABS: Appearance,Urine Cloudy (Clear); Bacteria,Urine Occasional /hpf; Bilirubin,Urine 1+ (Negative); Blood,Urine Negative (Negative); Color,Urine Yellow; Glucose,Urine (UA) Negative (Negative); Hyaline Casts,Urine 9 /lpf (0-2); Ketones,Urine 1+ (Negative); Leukocyte Esterase,Urine Moderate (Negative); Mucus,Urine Few /hpf; Nitrite,Urine Negative (Negative); PH, Urine 6.5 (5.0-8.0); Protein,Urine 1+ (Negative); RBC,Urine <1 /hpf (0-5); Specific Gravity,Urine 1.025 (1.001-1.035); Squamous Epithelial Cell,Urine <1 /hpf (0-4); WBC,Urine 15 /hpf (0-5)
--- NOTE | 2017-06-14 10:12 | XR ---
EXAMINATION TYPE: XR Hip RT and AP Pelvis DATE OF EXAM: 06/14/2017 COMPARISON: CT abdomen pelvis 07/26/2016 HISTORY: Right hip and back, leg pain TECHNIQUE: A single AP view of the pelvis is obtained. Two views of the hip are obtained. FINDINGS: There is no acute fracture/dislocation evident in the pelvis. The hip and sacroiliac join ts appear symmetric and unremarkable. The overlying soft tissue appears unremarkable. Surgical clips are present in the right lower quadrant. Multiple metallic densities scattered within the bowel may be related to radiodense medication. There is a scoliotic curvature of the lumbar spine. Sclerosis no corrina in the right ilium is stable finding and may represent bone island. Two views of right hip show no acute fracture or dislocation. No focal lytic or sclerotic lesion see n in the proximal right femur. The overlying soft tissue is unremarkable. IMPRESSION: There is no acute fracture or dislocation in the pelvis or right hip. Additional finding s above.
[2017-06-14] MEDS ORDERED: POTASSIUM CHLORIDE ER 20 MEQ TAB.ER PO STA (10:24)
[2017-06-14] MEDS ORDERED: POTASSIUM CHLORIDE 20 MEQ in WATER FOR INJECTION 1 100ML.BAG IVPB STA (10:24)
[2017-06-14] MEDS ORDERED: cefTRIAXone IN SWFI 1,000 MG/10 ML SYRINGE IVP STA (11:20)
[2017-06-14] MEDS ORDERED: HYDROcodone/APAP 5-325MG 1 EACH TAB PO PRN (11:21)
[2017-06-14] MEDS ORDERED: NALOXONE 0.4 MG/ML 1 ML VIAL IV PRN (11:21)
[2017-06-14] MEDS ORDERED: SODIUM CHLORIDE 0.9% 1,000 ML IV ONE (11:21)
[2017-06-14] MEDS ORDERED: ONDANSETRON 4 MG/2 ML VIAL IVP PRN (11:21)
--- NOTE | 2017-06-14 11:28 | ED ---
Medical Decision Making - Lab Data Result diagrams: 06/14/17 09:20 06/14/17 09:20 Lab Results 06/14/17 06/14/17 06/14/17 Range/Units 09:20 09:20 09:20 WBC 7.0 (3.8-10.6) k/uL RBC 4.95 (3.80-5.40) m/uL Hgb 11.0 L (11.4-16.0) gm/dL Hct 35.5 (34.0-46.0) % MCV 71.7 L (80.0-100.0) fL MCH 22.2 L (25.0-35.0) pg MCHC 31.0 (31.0-37.0) g/dL RDW 16.4 H (11.5-15.5) % Plt Count 474 H (150-450) k/uL Neutrophils % 85 % Lymphocytes % 7 % Monocytes % 6 % Eosinophils % 1 % Basophils % 0 % Neutrophils # 5.9 (1.3-7.7) k/uL Lymphocytes # 0.5 L (1.0-4.8) k/uL Monocytes # 0.4 (0-1.0) k/uL Eosinophils # 0.1 (0-0.7) k/uL Basophils # 0.0 (0-0.2) k/uL Hypochromasia Moderate Anisocytosis Slight Microcytosis Moderate PT 9.4 (9.0-12.0) sec INR 0.9 (<1.2) APTT 21.9 L (22.0-30.0) sec Sodium 136 L (137-145) mmol/L Potassium 2.6 L* (3.5-5.1) mmol/L Chloride 99 (98-107) mmol/L Carbon Dioxide 24 (22-30) mmol/L Anion Gap 13 mmol/L BUN 15 (7-17) mg/dL Creatinine 0.52 (0.52-1.04) mg/dL Est GFR (CKD-EPI)AfAm >90 (>60 ml/min/1.73 sqM) Est GFR (CKD-EPI)NonAf >90 (>60 ml/min/1.73 sqM) Glucose 113 H (74-99) mg/dL Calcium 10.0 (8.4-10.2) mg/dL Total Bilirubin 0.4 (0.2-1.3) mg/dL AST 34 (14-36) U/L ALT 41 (9-52) U/L Alkaline Phosphatase 268 H (38-126) U/L Total Protein 6.0 L (6.3-8.2) g/dL Albumin 3.6 (3.5-5.0) g/dL Urine Color Urine Appearance (Clear) Urine pH (5.0-8.0) Ur Specific [place] (1.001-1.035) Urine Protein (Negative) Urine Glucose (UA) (Negative) Urine Ketones (Negative) Urine Blood (Negative) Urine Nitrite (Negative) Urine Bilirubin (Negative) Urine Urobilinogen (<2.0) mg/dL Ur Leukocyte Esterase (Negative) Urine RBC (0-5) /hpf Urine WBC (0-5) /hpf Ur Squamous Epith Cells (0-4) /hpf Urine Bacteria (None) /hpf Hyaline Casts (0-2) /lpf Urine Mucus (None) /hpf 06/14/17 Range/Units 09:20 WBC (3.8-10.6) k/uL RBC (3.80-5.40) m/uL Hgb (11.4-16.0) gm/dL Hct (34.0-46.0) % MCV (80.0-100.0) fL MCH (25.0-35.0) pg MCHC (31.0-37.0) g/dL RDW (11.5-15.5) % Plt Count (150-450) k/uL Neutrophils % % Lymphocytes % % Monocytes % % Eosinophils % % Basophils % % Neutrophils # (1.3-7.7) k/uL Lymphocytes # (1.0-4.8) k/uL Monocytes # (0-1.0) k/uL Eosinophils # (0-0.7) k/uL Basophils # (0-0.2) k/uL Hypochromasia Anisocytosis Microcytosis PT (9.0-12.0) sec INR (<1.2) APTT (22.0-30.0) sec Sodium (137-145) mmol/L Potassium (3.5-5.1) mmol/L Chloride (98-107) mmol/L Carbon Dioxide (22-30) mmol/L Anion Gap mmol/L BUN (7-17) mg/dL Creatinine (0.52-1.04) mg/dL Est GFR (CKD-EPI)AfAm (>60 ml/min/1.73 sqM) Est GFR (CKD-EPI)NonAf (>60 ml/min/1.73 sqM) Glucose (74-99) mg/dL Calcium (8.4-10.2) mg/dL Total Bilirubin (0.2-1.3) mg/dL AST (14-36) U/L ALT (9-52) U/L Alkaline Phosphatase (38-126) U/L Total Protein (6.3-8.2) g/dL Albumin (3.5-5.0) g/dL Urine Color Yellow Urine Appearance Cloudy H (Clear) Urine pH 6.5 (5.0-8.0) Ur Specific [place] 1.025 (1.001-1.035) Urine Protein 1+ H (Negative) Urine Glucose (UA) Negative (Negative) Urine Ketones 1+ H (Negative) Urine Blood Negative (Negative) Urine Nitrite Negative (Negative) Urine Bilirubin 1+ H (Negative) Urine Urobilinogen 4.0 (<2.0) mg/dL Ur Leukocyte Esterase Moderate H (Negative) Urine RBC <1 (0-5) /hpf Urine WBC 15 H (0-5) /hpf Ur Squamous Epith Cells <1 (0-4) /hpf Urine Bacteria Occasional H (None) /hpf Hyaline Casts 9 H (0-2) /lpf Urine Mucus Few H (None) /hpf Disposition Clinical Impression: Multiple sclerosis exacerbation, Chronic back pain Disposition: ADMITTED IP TO THIS [facility] Condition: Stable Referrals: Mark Luis MD [Primary Care Provider] - 1-2 days
[2017-06-14] MEDS ORDERED: KETOROLAC 30 MG/ML 1 ML VIAL IVP PRN (13:45)
--- NOTE | 2017-06-14 14:21 | P.HPIM ---
History of Present Illness 51-year-old female seen with a past medical history for MS, chronic low back pain, presenting to the emergency room today with a chief complaint of increased pain in her lower back and right hip. She does not that she's had pain radiating to the right hip approximately the right knee. She states she's had this in the past. States that she's been following up with orthopedics seen both the surgeon and pain specialist there. Sensation schedule have a injection of the L3 area she has a herniated disc that was seen on MRI back in April 2017. Patient states that she is currently out of pain medication she was taking [place]. Patient admits that she has a history of MS. She states that when she has a infection she always gets a flareup of her MS. S. She states that this started a week ago. She states that she has had increased weakness to her lower legs bilaterally. She states she's had this in the past with her MS. She states she has seen neurologist at [facility] who is treating her for multiple sclerosis. Patient was given a dose of steroids and that neurology had was consulted. Patient is comparing of some neuropathic pain only and bilateral foot she denied any medical her pain. Patient the has normal strength in bilateral lower extremities on exam. Patient denies any bowel or bladder incontinence retention. She does admit that she straight caths herself due to neurogenic bladder issues. She denies any dysuria nausea vomiting. Review of Systems REVIEW OF SYSTEMS: CONSTITUTIONAL: As mentioned above HEENT: No recent visual problems or hearing problems. Denied any sore throat. CARDIOVASCULAR: No chest pain, orthopnea, PND, no palpitations, no syncope. PULMONARY: No shortness of breath, no cough, no hemoptysis. GASTROINTESTINAL: No diarrhea, no nausea, no vomiting, no abdominal pain. Normoactive bowel sounds. NEUROLOGICAL: As mentioned above HEMATOLOGICAL: Denies any bleeding or petechiae. GENITOURINARY: Denies any burning micturition, frequency, or urgency. MUSCULOSKELETAL/RHEUMATOLOGICAL: As mentioned above ENDOCRINE: Denies any polyuria or polydipsia. The rest of the 14-point review of systems is negative. Past Medical History Past Medical History: Asthma, Fibromyalgia, GERD/Reflux, Hypertension, Musculoskeletal Disorder, Neurologic Disorder, Pneumonia Additional Past Medical History / Comment(s): MS for 22 yrs, NEUROGENIC BLADDER (STRAIGHT CATHS), uti's, uti with sepsis, hypokalemia and hyponatremia and elevated/fluctuating liver enzymes-worked up at [facility] and no cause found, iron deficiency anemia, lumbar DDD, L3 herniated disc, pinched nerve at L5 with R leg sciatica, chronic back pain, gait dysfunction, balance issues, falls, incisional and umbilical hernias, stomach ulcers, numbness and tingling bilateral feet. History of Any Multi-Drug Resistant Organisms: None Reported Past Surgical History: Appendectomy, Bariatric Surgery, Bladder Surgery, Cholecystectomy, Orthopedic Surgery, Uterine Ablation Additional Past Surgical History / Comment(s): Mediport to left chest, Joseline-en- Y BARIATRIC SX 1999 with 165# wt loss, 2001 ABDOMINOPLASTY AND BREAST AUGMENTATION, PAIN INJECTIONS to back AT OA, pubovaginal sling, cystoscopy, cold knife conization, D&C, R foot ORIF with pins. Past Anesthesia/Blood Transfusion Reactions: No Reported Reaction Smoking Status: Never smoker - Past Family History Father Family Medical History: Hypertension Additional Family Medical History / Comment(s): DAD IS 72 years old. He had a NC at the age of 60 yrs. He has had CABG. Mother Family Medical History: No Reported History Additional Family Medical History / Comment(s): Mother had a closed head injury from a MVA and deteriorated over time. She is . Medications and Allergies Home Medications Medication Instructions Recorded Confirmed Type Imipramine HCl [Tofranil] 10 mg PO TID 01/15/14 06/14/17 History Oxybutynin Chloride [Ditropan] 5 mg PO TID 01/15/14 06/14/17 History Gabapentin [Neurontin] 800 mg PO TID 12/21/15 06/14/17 History Ibuprofen [Motrin] 800 mg PO TID PRN 12/21/15 06/14/17 History Lisinopril-Hctz 10-12.5 mg 1 tab PO QAM 12/21/15 06/14/17 History [Zestoretic 10-12.5] DULoxetine HCL 60 mg PO QAM 03/25/16 06/14/17 History L.acidoph,Paracasei, B.lactis 1 cap PO DAILY 03/29/16 06/14/17 History [Probiotic] HYDROcodone/APAP 10-325MG [[place] 1 tab PO TID PRN 12/02/16 06/14/17 History 10-325] Fingolimod HCl [Gilenya] 0.5 mg PO DAILY 06/14/17 06/14/17 History Allergies Allergy/AdvReac Type Severity Reaction Status Date / Time walnut Allergy Intermediate tongue and Verified 06/14/17 08:45 throat itch cantaloupe Allergy Intermediate tongue and Uncoded 06/14/17 08:34 throat itches Physical Exam Vitals: Vital Signs Temp Pulse Resp BP Pulse Ox 06/14/17 11:25 86 16 130/70 100 06/14/17 08:30 98.8 F 89 18 144/55 100 Intake and Output 06/13/17 06/14/17 06/14/17 22:59 06:59 14:59 Other: Weight 90.718 kg PHYSICAL EXAMINATION: GENERAL: The patient is alert and oriented x3, not in any acute distress. Well developed, well nourished. HEENT: Pupils are round and equally reacting to light. EOMI. No scleral icterus. No conjunctival pallor. Normocephalic, atraumatic. No pharyngeal erythema. No thyromegaly. CARDIOVASCULAR: S1 and S2 present. No murmurs, rubs, or gallops. PULMONARY: Chest is clear to auscultation, no wheezing or crackles. ABDOMEN: Soft, nontender, nondistended, normoactive bowel sounds. No palpable organomegaly. MUSCULOSKELETAL: No joint swelling or deformity. EXTREMITIES: No cyanosis, clubbing, or pedal edema. NEUROLOGICAL: Gross neurological examination did not reveal any focal deficits. SKIN: No rashes. Results CBC & Chem 7: 06/14/17 09:20 06/14/17 09:20 Labs: Abnormal Lab Results - Last 24 Hours (Table) 06/14/17 06/14/17 06/14/17 Range/Units 09:20 09:20 09:20 Hgb 11.0 L (11.4-16.0) gm/dL MCV 71.7 L (80.0-100.0) fL MCH 22.2 L (25.0-35.0) pg RDW 16.4 H (11.5-15.5) % Plt Count 474 H (150-450) k/uL Lymphocytes # 0.5 L (1.0-4.8) k/uL APTT 21.9 L (22.0-30.0) sec Sodium 136 L (137-145) mmol/L Potassium 2.6 L* (3.5-5.1) mmol/L Glucose 113 H (74-99) mg/dL Alkaline Phosphatase 268 H (38-126) U/L Total Protein 6.0 L (6.3-8.2) g/dL Urine Appearance (Clear) Urine Protein (Negative) Urine Ketones (Negative) Urine Bilirubin (Negative) Ur Leukocyte Esterase (Negative) Urine WBC (0-5) /hpf Urine Bacteria (None) /hpf Hyaline Casts (0-2) /lpf Urine Mucus (None) /hpf 06/14/17 Range/Units 09:20 Hgb (11.4-16.0) gm/dL MCV (80.0-100.0) fL MCH (25.0-35.0) pg RDW (11.5-15.5) % Plt Count (150-450) k/uL Lymphocytes # (1.0-4.8) k/uL APTT (22.0-30.0) sec Sodium (137-145) mmol/L Potassium (3.5-5.1) mmol/L Glucose (74-99) mg/dL Alkaline Phosphatase (38-126) U/L Total Protein (6.3-8.2) g/dL Urine Appearance Cloudy H (Clear) Urine Protein 1+ H (Negative) Urine Ketones 1+ H (Negative) Urine Bilirubin 1+ H (Negative) Ur Leukocyte Esterase Moderate H (Negative) Urine WBC 15 H (0-5) /hpf Urine Bacteria Occasional H (None) /hpf Hyaline Casts 9 H (0-2) /lpf Urine Mucus Few H (None) /hpf Thrombosis Risk Factor Assmnt - Choose All That Apply Any of the Below Risk Factors Present?: Yes Each Factor Represents 1 point: Age 41-60 years, Obesity (BMI >25) Other Risk Factors: No Other congenital or acquired thrombophilia - If yes, enter type in comment: No Thrombosis Risk Factor Assessment Total Risk Factor Score: 2 Thrombosis Risk Factor Assessment Level: Low Risk Assessment and Plan Plan: -Back pain appears to be chronic low back pain patient does not have any red flag signs of back pain patient will need physical therapy as an outpatient patient will be on nonsteroidal anti-inflammatory medications along with systemic strides. -History of multiple sclerosis with complaints of weakness and bilateral lower limbs patient reflexes are essentially within normal limits strength is 5/5 in bilateral lower extremities suspicion is low that patient is having emesis exacerbation anyways we'll let neurology evaluated the patient in the patient will be resumed on her MS medications along with systemic steroids. 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
[2017-06-14] MEDS: IMIPRAMINE 10 MG TAB PO SCH ×3 (14:36→21:50)
[2017-06-14] MEDS: GABAPENTIN 400 MG CAP PO SCH ×2 (14:36→21:50)
[2017-06-14] MEDS: OXYBUTYNIN CHLORIDE 5 MG TAB PO SCH ×2 (14:36→21:50)
[2017-06-14] MEDS: HYDROcodone/APAP 10-325MG 1 EACH TAB PO PRN (17:19)
--- NOTE | 2017-06-14 19:32 | P.CNNES ---
History of Present Illness Consult date: 06/14/17 Reason for Consult: Patient with MS exacerbation and severe lumbar radicular pain. History of Present Illness: This patient is a 51-year-old right-handed white female who was admitted to [facility] for acute MS exacerbation. Patient states that she has been having severe intractable back pain for the past 2 weeks. She has a history of multiple sclerosis diagnosed 23 years ago and has been on multiple treatments for her MS over the years. She has tried many of the interferon therapies as well as IV infusions all of which have not been of significant help for her. She continues to have frequent MS exacerbations. According to the patient she underwent a stem cell procedure about 1 week ago for treatment of her MS. She was also recently seen in the orthopedic clinic by Dr. Blas who advised her the results of her recent MRI of the lumbar spine indicated a herniated disc at L3. She was advised to follow-up with Dr. Carrillo for possible back surgery. Apparently the pain has been intractable radiating to her right hip and down her right lateral aspect of the thigh muscles. Apparently she has an appointment to see the orthopedic surgeon only on 07/07/2017. Patient states that she has been having frequent MS exacerbations. As noted she has been treated with IV Solu-Medrol in the past. She also follows with Dr. Azul who does perform injections to her right hip joint which is also very painful for her. It is unclear if this is referred pain from the lumbar disc disease. Patient states her recent MRI was done at [facility]. This MRI was reviewed by Dr. Blas who is recommending surgical consultation. The patient was seen in the ER and was admitted today for MS exacerbation. We have recommending she be maintained on low dose IV Solu- Medrol 125 mg IV piggyback every 6 hours for 2 days. We are recommending a consultation with pain management and Dr. Abreu for further evaluation of her pain management. Patient states has been prescribed Narco which is not helping at all and she continues to state that the pain level is 10 over 10 in intensity. The pain seems to be mostly localizing to the right hip and right outer thigh muscle region. She denies any give way weakness in the legs at this time due to the pain. She states she is just in such severe pain and discomfort that she needed to seek out further treatment options. The patient is not very clear about her recent stem cell transplant procedure that apparently she had done last week. We are recommending that she follow-up with her regular neurologist Dr. Azul for further management once she is discharged. We would recommend evaluation by Dr. Rose for possible outpatient or inpatient physical rehabilitation for her as well. We will await further evaluation per PT and OT during this admission. We will await further recommendations from Dr. Abreu in terms of pain management for this patient. We will await further recommendations from Dr. Carrillo regarding her recent MRI findings. As noted her MS has been progressive over the years and she has been on multiple treatment options none of which have been successful thus far. As noted she has recently undergone stem cell transplant procedure a week ago and should follow-up with those specialists as well. Neurology is now been consulted for further evaluation and recommendations. Review of Systems Constitutional: Denies chills, Denies fever Ears, nose, mouth and throat: Denies headache, Denies sore throat Cardiovascular: Denies chest pain, Denies shortness of breath Respiratory: Denies cough Gastrointestinal: Denies abdominal pain, Denies diarrhea, Denies nausea, Denies vomiting Genitourinary: Denies dysuria, Denies hematuria Musculoskeletal: Reports low back pain, Reports shooting leg pain, Denies myalgias Musculoskeletal: right: hip pain Integumentary: Denies pruritus, Denies rash Neurological: Reports gait dysfunction, Reports paresthesias, Reports tingling, Denies numbness, Denies weakness Psychiatric: Denies anxiety, Denies depression Endocrine: Denies fatigue, Denies weight change Past Medical History Past Medical History: Asthma, Fibromyalgia, GERD/Reflux, Hypertension, Musculoskeletal Disorder, Neurologic Disorder, Pneumonia Additional Past Medical History / Comment(s): MS for 22 yrs, NEUROGENIC BLADDER (STRAIGHT CATHS), uti's, uti with sepsis, hypokalemia and hyponatremia and elevated/fluctuating liver enzymes-worked up at [facility] and no cause found, iron deficiency anemia, lumbar DDD, L3 herniated disc, pinched nerve at L5 with R leg sciatica, chronic back pain, gait dysfunction, balance issues, falls, incisional and umbilical hernias, stomach ulcers, numbness and tingling bilateral feet. History of Any Multi-Drug Resistant Organisms: None Reported Past Surgical History: Appendectomy, Bariatric Surgery, Bladder Surgery, Cholecystectomy, Orthopedic Surgery, Uterine Ablation Additional Past Surgical History / Comment(s): Mediport to left chest, Joseline-en- Y BARIATRIC SX 1999 with 165# wt loss, 2001 ABDOMINOPLASTY AND BREAST AUGMENTATION, PAIN INJECTIONS to back AT OA, pubovaginal sling, cystoscopy, cold knife conization, D&C, R foot ORIF with pins. Past Anesthesia/Blood Transfusion Reactions: No Reported Reaction Smoking Status: Never smoker - Past Family History Father Family Medical History: Hypertension Additional Family Medical History / Comment(s): DAD IS 72 years old. He had a [place] at the age of 60 yrs. He has had CABG. Mother Family Medical History: No Reported History Additional Family Medical History / Comment(s): Mother had a closed head injury from a MVA and deteriorated over time. She is . Medications and Allergies Home Medications Medication Instructions Recorded Confirmed Type Imipramine HCl [Tofranil] 10 mg PO TID 01/15/14 06/14/17 History Oxybutynin Chloride [Ditropan] 5 mg PO TID 01/15/14 06/14/17 History Gabapentin [Neurontin] 800 mg PO TID 12/21/15 06/14/17 History Ibuprofen [Motrin] 800 mg PO TID PRN 12/21/15 06/14/17 History Lisinopril-Hctz 10-12.5 mg 1 tab PO QAM 12/21/15 06/14/17 History [Zestoretic 10-12.5] DULoxetine HCL 60 mg PO QAM 03/25/16 06/14/17 History L.acidoph,Paracasei, B.lactis 1 cap PO DAILY 03/29/16 06/14/17 History [Probiotic] HYDROcodone/APAP 10-325MG [[place] 1 tab PO TID PRN 12/02/16 06/14/17 History 10-325] Fingolimod HCl [Gilenya] 0.5 mg PO DAILY 06/14/17 06/14/17 History Allergies Allergy/AdvReac Type Severity Reaction Status Date / Time walnut Allergy Intermediate tongue and Verified 06/14/17 08:45 throat itch cantaloupe Allergy Intermediate tongue and Uncoded 06/14/17 08:34 throat itches Physical Examination - Vital Signs Vital Signs: Vital Signs Temp Pulse Pulse Resp BP BP Pulse Ox 06/14/17 13:05 98.0 F 74 20 117/74 100 06/14/17 11:25 86 16 130/70 100 06/14/17 08:30 98.8 F 89 18 144/55 100 Intake and Output 06/14/17 06/14/17 06/14/17 06:59 14:59 22:59 Intake Total 580 Output Total 740 250 Balance -160 -250 Intake: Oral 580 Output: Urine 740 250 Other: Voiding Method Self-Catheterization Self-Catheterization # Voids 1 Weight 90.718 kg - Constitutional General appearance: average body habitus, cooperative - EENT EENT: PERRL, mucous membranes moist - Respiratory Respiratory: lungs clear, normal breath sounds - Cardiovascular Cardiovascular: regular rate, normal S1, normal S2 Extremities: no peripheral edema bilaterally - Gastrointestinal Gastrointestinal: normoactive bowel sounds - Integumentary Integumentary: normal - Neurologic Cranial nerve examination: PERRL, EOMI, VFF, V1/V2/V3 grossly intact, face symmetric, tongue midline, intact gag reflex, intact corneal reflex, normal palatal elevation Speech examination: intact Sensorimotor examination: intact Motor examination - right side: 4/5: biceps, triceps, wrist flexion, wrist extension, wash tank tender, hip flexors, knee extensors, dorsiflexion, toe extension (EHL) , plantarflexion Motor examination - left side: 5/5: biceps, triceps, wrist flexion, wrist extension, wash tank tender, hip flexors, knee extensors, dorsiflexion, toe extension (EHL) , plantarflexion Detailed sensory examination: intact Reflex and gait examination: intact Reflexes: 1+: ankle, bicep, knee, tricep - Musculoskeletal Musculoskeletal: no pain - Psychiatric Psychiatric: mood/affect appropriate, cooperative Results - Laboratory Findings CBC and BMP: 06/14/17 09:20 06/14/17 09:20 Abnormal Lab Findings: Abnormal Labs 06/14/17 06/14/17 06/14/17 09:20 09:20 09:20 Hgb 11.0 L MCV 71.7 L MCH 22.2 L RDW 16.4 H Plt Count 474 H Lymphocytes # 0.5 L APTT 21.9 L Sodium 136 L Potassium 2.6 L* Glucose 113 H Alkaline Phosphatase 268 H Total Protein 6.0 L Urine Appearance Urine Protein Urine Ketones Urine Bilirubin Ur Leukocyte Esterase Urine WBC Urine Bacteria Hyaline Casts Urine Mucus 06/14/17 09:20 Hgb MCV MCH RDW Plt Count Lymphocytes # APTT Sodium Potassium Glucose Alkaline Phosphatase Total Protein Urine Appearance Cloudy H Urine Protein 1+ H Urine Ketones 1+ H Urine Bilirubin 1+ H Ur Leukocyte Esterase Moderate H Urine WBC 15 H Urine Bacteria Occasional H Hyaline Casts 9 H Urine Mucus Few H Assessment and Plan (1) Multiple sclerosis exacerbation Current Visit: Yes Status: Acute Code(s): G35 - MULTIPLE SCLEROSIS SNOMED Code(s): 060649951 (2) Acute lumbar radiculopathy Current Visit: Yes Status: Acute Code(s): M54.16 - RADICULOPATHY, LUMBAR REGION SNOMED Code(s): 287510622 (3) Chronic pain syndrome Current Visit: Yes Status: Acute Code(s): G89.4 - CHRONIC PAIN SYNDROME SNOMED Code(s): 075646521 (4) Moderate cervical dysplasia Current Visit: No Status: Acute Code(s): N87.1 - MODERATE CERVICAL DYSPLASIA SNOMED Code(s): 309455667 (5) Urinary tract infection Current Visit: No Status: Acute Code(s): N39.0 - URINARY TRACT INFECTION, SITE NOT SPECIFIED SNOMED Code(s): 72972883 Plan: This patient is a 51-year-old female with a long-standing history of progressive multiple sclerosis. Patient was admitted to hospital with possible MS exacerbation as well as worsening chronic lumbar disc pain. Patient [facility] by Dr. Blas recently and was found to have MRI evidence of major disc herniation at L3 level. We have recommended a consultation with Dr. Carrillo for further assessment. She continues to have evidence of severe intractable back pain. We are recommending consultation with Dr. Abreu for pain management evaluation and treatment. We will continue the patient on low dose IV Solu-Medrol for 2 days to see if this helps with her acute inflammatory condition. Would recommend consultation with Dr. Rose regarding possible subacute rehab or outpatient therapy for her MS condition. Case was discussed at length with the patient. She has undergone recent stem cell transplantation according to the patient about a week ago. She should follow-up with those specialists. She is to follow-up with Dr. Pratt upon discharge who is her routine neurologist. At this time we will treat her for acute MS exacerbation and monitor her course closely during this admission. Overall prognosis at this time remains guarded. Time with Patient: Greater than 30
[2017-06-15] MEDS: methylPREDNISolone SOD SUCCI 125 MG/2 ML VIAL IV SCH ×3 (00:59→12:48)
[2017-06-15] MEDS: HYDROcodone/APAP 10-325MG 1 EACH TAB PO PRN ×3 (01:00→16:07)
[2017-06-15] MEDS: KETOROLAC 30 MG/ML 1 ML VIAL IVP PRN ×2 (04:13→14:44)
[2017-06-15 07:50] LABS: Anisocytosis Slight; Basophils % (A) 0 %; Eosinophils % (A) 1 %; HCT 29.6 % (34.0-46.0); Hypochromasia Marked; Lymphocytes # (A) 0.2 k/uL (1.0-4.8); Lymphocytes % (A) 7 %; MCV 73.3 fL (80.0-100.0); Mean Platelet Volume 6.2; Microcytosis Moderate; Monocytes # (A) 0.1 k/uL (0-1.0); Monocytes % (A) 2 %; Neutrophils # (A) 2.8 k/uL (1.3-7.7); Neutrophils % (A) 89 %; Platelet Count 357 k/uL (150-450); RBC 4.05 m/uL (3.80-5.40); RDW 16.9 % (11.5-15.5); WBC 3.1 k/uL (3.8-10.6)
[2017-06-15 07:56] LABS: HGB 8.9 gm/dL (11.4-16.0)
[2017-06-15 08:09] LABS: ALT 34 U/L (9-52); AST 25 U/L (14-36); Alkaline Phosphatase 188 U/L (38-126); Anion Gap 11 mmol/L; Blood Urea Nitrogen 12 mg/dL (7-17); Calcium 9.5 mg/dL (8.4-10.2); Carbon Dioxide 23 mmol/L (22-30); Chloride 105 mmol/L (98-107); Glucose 150 mg/dL (74-99); Sodium 139 mmol/L (137-145); Total Bilirubin 0.1 mg/dL (0.2-1.3); Total Protein 5.2 g/dL (6.3-8.2)
[2017-06-15 08:19] LABS: Potassium 3.2 mmol/L (3.5-5.1)
--- NOTE | 2017-06-15 08:29 | P.CONS ---
History of Present Illness - Chief Complaint Gait disturbance - History of Present Illness I had the op to see patient for inpatient rehab consultation with regard to gait disturbance. She was admitted to [facility] yesterday acute onset MS exacerbation and right LS radiculopathy. Pelvic and hip x-ray negative. LS- spine x-ray demonstrates facet change L2-5 with grade 1 retrolisthesis L2 and grade 1 anterolisthesis L3, 4. PT and OT prescribed. Previous functional history as elicited from patient: 51-year-old left-handed white female is lives in a first-floor apartment with 8. Is on disability related to potassium disturbance. 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 Describes independent with own cooking, laundry,, standing shower and gait without device. 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 Has a 4 wheeled walker which she uses occasionally, once per month. Regular doctors Dr. Luis. Family history of father with cardiac disease and MT. Review of Systems Review of systems: ENT: Denies sneezes or discharge. Eyes: Denies discharge or photophobia. Cardiac: Denies chest pain or palpitation. Pulmonary: Denies cough or shortness of breath. Breast: Denies discharge or lumps. Gastrointestinal: Denies nausea, emesis, constipation, diarrhea. Genitourinary: Denies discharge or frequency. Musculoskeletal: Low back pain radiating into the right leg. Neurologic: Mild generalized weakness perhaps most and right leg. Endocrine: Denies shakes or sweats. Oncology: Denies cancers. Dermatologic: Denies rash, itching, pruritus. ALLERGY/immunology: Denies sneezes, rashes. Past Medical History Past Medical History: Asthma, Fibromyalgia, GERD/Reflux, Hypertension, Musculoskeletal Disorder, Neurologic Disorder, Pneumonia Additional Past Medical History / Comment(s): MS for 22 yrs, NEUROGENIC BLADDER (STRAIGHT CATHS), uti's, uti with sepsis, hypokalemia and hyponatremia and elevated/fluctuating liver enzymes-worked up at [facility] and no cause found, iron deficiency anemia, lumbar DDD, L3 herniated disc, pinched nerve at L5 with R leg sciatica, chronic back pain, gait dysfunction, balance issues, falls, incisional and umbilical hernias, stomach ulcers, numbness and tingling bilateral feet. History of Any Multi-Drug Resistant Organisms: None Reported Past Surgical History: Appendectomy, Bariatric Surgery, Bladder Surgery, Cholecystectomy, Orthopedic Surgery, Uterine Ablation Additional Past Surgical History / Comment(s): Mediport to left chest, Joseline-en- Y BARIATRIC SX 1999 with 165# wt loss, 2001 ABDOMINOPLASTY AND BREAST AUGMENTATION, PAIN INJECTIONS to back AT OA, pubovaginal sling, cystoscopy, cold knife conization, D&C, R foot ORIF with pins. Past Anesthesia/Blood Transfusion Reactions: No Reported Reaction Smoking Status: Never smoker - Past Family History Father Family Medical History: Hypertension Additional Family Medical History / Comment(s): DAD IS 72 years old. He had a MT at the age of 60 yrs. He has had CABG. Mother Family Medical History: No Reported History Additional Family Medical History / Comment(s): Mother had a closed head injury from a MVA and deteriorated over time. She is . Medications and Allergies Home Medications Medication Instructions Recorded Confirmed Type Imipramine HCl [Tofranil] 10 mg PO TID 01/15/14 06/14/17 History Oxybutynin Chloride [Ditropan] 5 mg PO TID 01/15/14 06/14/17 History Gabapentin [Neurontin] 800 mg PO TID 12/21/15 06/14/17 History Ibuprofen [Motrin] 800 mg PO TID PRN 12/21/15 06/14/17 History Lisinopril-Hctz 10-12.5 mg 1 tab PO QAM 12/21/15 06/14/17 History [Zestoretic 10-12.5] DULoxetine HCL 60 mg PO QAM 03/25/16 06/14/17 History L.acidoph,Paracasei, B.lactis 1 cap PO DAILY 03/29/16 06/14/17 History [Probiotic] HYDROcodone/APAP 10-325MG [[place] 1 tab PO TID PRN 12/02/16 06/14/17 History 10-325] Fingolimod HCl [Gilenya] 0.5 mg PO DAILY 06/14/17 06/14/17 History Allergies Allergy/AdvReac Type Severity Reaction Status Date / Time walnut Allergy Intermediate tongue and Verified 06/14/17 08:45 throat itch cantaloupe Allergy Intermediate tongue and Uncoded 06/14/17 08:34 throat itches Physical Exam Vitals: Vital Signs Temp Pulse Pulse Resp BP BP Pulse Ox 06/15/17 00:59 97.5 F L 82 18 108/72 100 06/14/17 19:11 98 F 88 20 117/76 100 06/14/17 13:05 98.0 F 74 20 117/74 100 06/14/17 11:25 86 16 130/70 100 06/14/17 08:30 98.8 F 89 18 144/55 100 Intake and Output 06/14/17 06/15/17 06/15/17 22:59 06:59 14:59 Output Total 580 625 Balance -580 -625 Output: Urine 580 625 Other: Voiding Method Self-Catheterization Self-Catheterization Skin: Good color, texture, turgor. General: Medium build and comfortable appearance. Head: Normocephalic, atraumatic. Eyes: Symmetric. Pupils equal round. Ears: Symmetric. Hearing within normal limits. Mouth: Clear. Neck: Supple. Carotid without bruit. Cardiac: Regular rate and rhythm. Lungs: Clear anteriorly and posteriorly. Abdomen: Soft active nontender. Extremities: Normal tone. Neurological: Mental status: Alert, cooperative, pleasant. Cranial nerves: Symmetric facial tone and trapezius. Motor: Normal strength and isolation both arms and left leg. Right leg poor related to pain. Sensation: Intact throughout. DTRs: Symmetric and equal throughout. Mobility: Reports independent in room including toilet although she self caths. BM yesterday at home. Results CBC & Chem 7: 06/15/17 07:34 06/14/17 09:20 Labs: Abnormal Lab Results - Last 24 Hours (Table) 06/14/17 06/14/17 06/14/17 Range/Units 09:20 09:20 09:20 WBC (3.8-10.6) k/uL Hgb 11.0 L (11.4-16.0) gm/dL Hct (34.0-46.0) % MCV 71.7 L (80.0-100.0) fL MCH 22.2 L (25.0-35.0) pg MCHC (31.0-37.0) g/dL RDW 16.4 H (11.5-15.5) % Plt Count 474 H (150-450) k/uL Lymphocytes # 0.5 L (1.0-4.8) k/uL ESR (0-20) mm/hr APTT 21.9 L (22.0-30.0) sec Sodium 136 L (137-145) mmol/L Potassium 2.6 L* (3.5-5.1) mmol/L Glucose 113 H (74-99) mg/dL Alkaline Phosphatase 268 H (38-126) U/L C-Reactive Protein (<10.0) mg/L Total Protein 6.0 L (6.3-8.2) g/dL Urine Appearance (Clear) Urine Protein (Negative) Urine Ketones (Negative) Urine Bilirubin (Negative) Ur Leukocyte Esterase (Negative) Urine WBC (0-5) /hpf Urine Bacteria (None) /hpf Hyaline Casts (0-2) /lpf Urine Mucus (None) /hpf 06/14/17 06/14/17 06/14/17 Range/Units 09:20 09:20 09:20 WBC (3.8-10.6) k/uL Hgb (11.4-16.0) gm/dL Hct (34.0-46.0) % MCV (80.0-100.0) fL MCH (25.0-35.0) pg MCHC (31.0-37.0) g/dL RDW (11.5-15.5) % Plt Count (150-450) k/uL Lymphocytes # (1.0-4.8) k/uL ESR 25 H (0-20) mm/hr APTT (22.0-30.0) sec Sodium (137-145) mmol/L Potassium (3.5-5.1) mmol/L Glucose (74-99) mg/dL Alkaline Phosphatase (38-126) U/L C-Reactive Protein 21.8 H (<10.0) mg/L Total Protein (6.3-8.2) g/dL Urine Appearance Cloudy H (Clear) Urine Protein 1+ H (Negative) Urine Ketones 1+ H (Negative) Urine Bilirubin 1+ H (Negative) Ur Leukocyte Esterase Moderate H (Negative) Urine WBC 15 H (0-5) /hpf Urine Bacteria Occasional H (None) /hpf Hyaline Casts 9 H (0-2) /lpf Urine Mucus Few H (None) /hpf 06/15/17 Range/Units 07:34 WBC 3.1 L (3.8-10.6) k/uL Hgb 8.9 L D (11.4-16.0) gm/dL Hct 29.6 L (34.0-46.0) % MCV 73.3 L (80.0-100.0) fL MCH 22.0 L (25.0-35.0) pg MCHC 30.0 L (31.0-37.0) g/dL RDW 16.9 H (11.5-15.5) % Plt Count (150-450) k/uL Lymphocytes # 0.2 L (1.0-4.8) k/uL ESR (0-20) mm/hr APTT (22.0-30.0) sec Sodium (137-145) mmol/L Potassium (3.5-5.1) mmol/L Glucose (74-99) mg/dL Alkaline Phosphatase (38-126) U/L C-Reactive Protein (<10.0) mg/L Total Protein (6.3-8.2) g/dL Urine Appearance (Clear) Urine Protein (Negative) Urine Ketones (Negative) Urine Bilirubin (Negative) Ur Leukocyte Esterase (Negative) Urine WBC (0-5) /hpf Urine Bacteria (None) /hpf Hyaline Casts (0-2) /lpf Urine Mucus (None) /hpf Microbiology - Last 24 Hours (Table) 06/14/17 09:20 Urine Culture - Preliminary Urine,Catheterized Assessment and Plan (1) Acute lumbar radiculopathy Current Visit: Yes Status: Acute Code(s): M54.16 - RADICULOPATHY, LUMBAR REGION SNOMED Code(s): 626739434 (2) Multiple sclerosis exacerbation Current Visit: Yes Status: Acute Code(s): G35 - MULTIPLE SCLEROSIS SNOMED Code(s): 014540620 Plan: Impression: 1. Gait disturbance. 2. MS exacerbation. 3. Acute right lumbar radiculopathy. 4. History of potassium disturbance. 5. Asthma. 6. Hypertension. 7. Fibromyalgia. 8. Reflux. Comments and plan: At this time PT and OT are prescribed. Patient's regular neurologist is Dr. barraza who does his own pain management. Note that they are interventionalists is prescribed for possible lumbar procedure.
[2017-06-15] MEDS ORDERED: LISINOPRIL-HCTZ 10-12.5 MG 1 EACH TAB PO SCH (09:00)
[2017-06-15] MEDS ORDERED: DULoxetine HCL 60 MG CAPSULE.DR PO SCH (09:00)
[2017-06-15] MEDS ORDERED: GILENYA 0.5 MG PO SCH (09:00)
--- NOTE | 2017-06-15 09:20 | P.CNOR ---
History of Present Illness - [facility] Consult date: 06/15/17 Consult reason: low back pain (With right lower extremity radiculopathy) History of present illness: The patient is seen and examined today at bedside. She is a pleasant 51-year-old female with history of MS and some chronic low back pain but with severe exacerbation of her low back over the past several weeks and severe exacerbation with right lower extremity radiculopathy. 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 She says that she has had issues with her back in the past and has had prior treatment including therapy and interventional pain management for her lumbar spine. She sees Dr. Azul regularly has been treating her for hip bursitis on the right side. She also has has seen Dr. [facility] regards her low back pain and has had epidural injections in the past. Her most recent injections were approximately over 6 months ago and she had some mild relief but this did not last for her. She was not having the severe pain at her right side and right leg that she is having now at that point. She feels her symptoms are worsened. [facility] she says approximately 3 weeks ago. She is having a great deal of difficulty with any sort of mobility and ambulation. She says when she is lying down she can lift her legs up and move them quite well but she has great difficulty standing and walking. She's not having changes in bowel bladder function. Her limitations are mainly due to her pain. She does not feel specifically week but rather unable to do things due to the pain at her back and right leg. She says that the medications here in Hospital have helped to some degree including the morphine and Flexeril. She does not feel her [place] has been helping her. Her primary pain is down her right leg at the back and side of her right thigh down to the level of her knee. She says that typically this is leg medication trouble with her MS but this is a different type pain for her. Review of Systems History of MS with right lower extremity issues. New acute exacerbation of right lower extremity pain and radiculopathy at the lateral and posterior aspect of her right thigh down to her knee. Pain at her low back bilaterally worse left than the right she denies chest pain shortness breath nausea or vomiting. Denies any changes in bowel bladder function. She feels unable to do activities due to the pain not specifically due to neurologic loss. Past Medical History Past Medical History: Asthma, Fibromyalgia, GERD/Reflux, Hypertension, Musculoskeletal Disorder (History of scoliosis. History of low back pain. History of epidural steroid injections at her lumbar spine), Neurologic Disorder , Pneumonia Additional Past Medical History / Comment(s): MS for 22 yrs, NEUROGENIC BLADDER (STRAIGHT CATHS), uti's, uti with sepsis, hypokalemia and hyponatremia and elevated/fluctuating liver enzymes-worked up at [facility] and no cause found, iron deficiency anemia, lumbar DDD, L3 herniated disc, pinched nerve at L5 with R leg sciatica, chronic back pain, gait dysfunction, balance issues, falls, incisional and umbilical hernias, stomach ulcers, numbness and tingling bilateral feet. History of Any Multi-Drug Resistant Organisms: None Reported Past Surgical History: Appendectomy, Bariatric Surgery, Bladder Surgery, Cholecystectomy, Orthopedic Surgery, Uterine Ablation Additional Past Surgical History / Comment(s): Mediport to left chest, Joseline-en- Y BARIATRIC SX 1999 with 165# wt loss, 2001 ABDOMINOPLASTY AND BREAST AUGMENTATION, PAIN INJECTIONS to back AT OA, pubovaginal sling, cystoscopy, cold knife conization, D&C, R foot ORIF with pins. Past Anesthesia/Blood Transfusion Reactions: No Reported Reaction Smoking Status: Never smoker - Past Family History Father Family Medical History: Hypertension Additional Family Medical History / Comment(s): DAD IS 72 years old. He had a [place] at the age of 60 yrs. He has had CABG. Mother Family Medical History: No Reported History Additional Family Medical History / Comment(s): Mother had a closed head injury from a MVA and deteriorated over time. She is . Medications and Allergies Home Medications Medication Instructions Recorded Confirmed Type Imipramine HCl [Tofranil] 10 mg PO TID 01/15/14 06/14/17 History Oxybutynin Chloride [Ditropan] 5 mg PO TID 01/15/14 06/14/17 History Gabapentin [Neurontin] 800 mg PO TID 12/21/15 06/14/17 History Ibuprofen [Motrin] 800 mg PO TID PRN 12/21/15 06/14/17 History Lisinopril-Hctz 10-12.5 mg 1 tab PO QAM 12/21/15 06/14/17 History [Zestoretic 10-12.5] DULoxetine HCL 60 mg PO QAM 03/25/16 06/14/17 History L.acidoph,Paracasei, B.lactis 1 cap PO DAILY 03/29/16 06/14/17 History [Probiotic] HYDROcodone/APAP 10-325MG [[place] 1 tab PO TID PRN 12/02/16 06/14/17 History 10-325] Fingolimod HCl [Gilenya] 0.5 mg PO DAILY 06/14/17 06/14/17 History Allergies Allergy/AdvReac Type Severity Reaction Status Date / Time walnut Allergy Intermediate tongue and Verified 06/14/17 08:45 throat itch cantaloupe Allergy Intermediate tongue and Uncoded 06/14/17 08:34 throat itches Physical Examination Osteopathic Statement: *. No significant issues noted on an osteopathic structural exam other than those noted in the History and Physical/Consult. - L Spine: dermatomal strength & reflexes bilateral Strength: hip flexion: 5/5 (Her back skin is clear. There is no open wounds lacerations or abrasions. There are no incisions. Her lower extremity she is nontender to palpation over her lower back and her lower extremity. She is no pain with internal/external rotation of her hips bilaterally. She is able to move her hips adequately. Though she does have pain at her back and right lower extremity with flexion. She has a positive Lasegue's sign. She does not have neck pain or stiffness. She does have positive straight leg raise.) Results - Labs Labs: Abnormal Lab Results - Last 24 Hours (Table) 06/14/17 06/14/17 06/14/17 Range/Units 09:20 09:20 09:20 WBC (3.8-10.6) k/uL Hgb 11.0 L (11.4-16.0) gm/dL Hct (34.0-46.0) % MCV 71.7 L (80.0-100.0) fL MCH 22.2 L (25.0-35.0) pg MCHC (31.0-37.0) g/dL RDW 16.4 H (11.5-15.5) % Plt Count 474 H (150-450) k/uL Lymphocytes # 0.5 L (1.0-4.8) k/uL ESR (0-20) mm/hr APTT 21.9 L (22.0-30.0) sec Sodium 136 L (137-145) mmol/L Potassium 2.6 L* (3.5-5.1) mmol/L Creatinine (0.52-1.04) mg/dL Glucose 113 H (74-99) mg/dL Total Bilirubin (0.2-1.3) mg/dL Alkaline Phosphatase 268 H (38-126) U/L C-Reactive Protein (<10.0) mg/L Total Protein 6.0 L (6.3-8.2) g/dL Albumin (3.5-5.0) g/dL Urine Appearance (Clear) Urine Protein (Negative) Urine Ketones (Negative) Urine Bilirubin (Negative) Ur Leukocyte Esterase (Negative) Urine WBC (0-5) /hpf Urine Bacteria (None) /hpf Hyaline Casts (0-2) /lpf Urine Mucus (None) /hpf 06/14/17 06/14/17 06/14/17 Range/Units 09:20 09:20 09:20 WBC (3.8-10.6) k/uL Hgb (11.4-16.0) gm/dL Hct (34.0-46.0) % MCV (80.0-100.0) fL MCH (25.0-35.0) pg MCHC (31.0-37.0) g/dL RDW (11.5-15.5) % Plt Count (150-450) k/uL Lymphocytes # (1.0-4.8) k/uL ESR 25 H (0-20) mm/hr APTT (22.0-30.0) sec Sodium (137-145) mmol/L Potassium (3.5-5.1) mmol/L Creatinine (0.52-1.04) mg/dL Glucose (74-99) mg/dL Total Bilirubin (0.2-1.3) mg/dL Alkaline Phosphatase (38-126) U/L C-Reactive Protein 21.8 H (<10.0) mg/L Total Protein (6.3-8.2) g/dL Albumin (3.5-5.0) g/dL Urine Appearance Cloudy H (Clear) Urine Protein 1+ H (Negative) Urine Ketones 1+ H (Negative) Urine Bilirubin 1+ H (Negative) Ur Leukocyte Esterase Moderate H (Negative) Urine WBC 15 H (0-5) /hpf Urine Bacteria Occasional H (None) /hpf Hyaline Casts 9 H (0-2) /lpf Urine Mucus Few H (None) /hpf 06/15/17 06/15/17 Range/Units 07:34 07:34 WBC 3.1 L (3.8-10.6) k/uL Hgb 8.9 L D (11.4-16.0) gm/dL Hct 29.6 L (34.0-46.0) % MCV 73.3 L (80.0-100.0) fL MCH 22.0 L (25.0-35.0) pg MCHC 30.0 L (31.0-37.0) g/dL RDW 16.9 H (11.5-15.5) % Plt Count (150-450) k/uL Lymphocytes # 0.2 L (1.0-4.8) k/uL ESR (0-20) mm/hr APTT (22.0-30.0) sec Sodium (137-145) mmol/L Potassium 3.2 L (3.5-5.1) mmol/L Creatinine 0.41 L (0.52-1.04) mg/dL Glucose 150 H (74-99) mg/dL Total Bilirubin 0.1 L (0.2-1.3) mg/dL Alkaline Phosphatase 188 H (38-126) U/L C-Reactive Protein (<10.0) mg/L Total Protein 5.2 L (6.3-8.2) g/dL Albumin 3.0 L (3.5-5.0) g/dL Urine Appearance (Clear) Urine Protein (Negative) Urine Ketones (Negative) Urine Bilirubin (Negative) Ur Leukocyte Esterase (Negative) Urine WBC (0-5) /hpf Urine Bacteria (None) /hpf Hyaline Casts (0-2) /lpf Urine Mucus (None) /hpf Microbiology - Last 24 Hours (Table) 06/14/17 09:20 Urine Culture - Preliminary Urine,Catheterized H & H 06/14/17 06/15/17 Range/Units 09:20 07:34 Hgb 11.0 L 8.9 L D (11.4-16.0) gm/dL Hct 35.5 29.6 L (34.0-46.0) % Coagulation 06/14/17 Range/Units 09:20 INR 0.9 (<1.2) Result Diagrams: 06/15/17 07:34 06/15/17 07:34 - Diagnostic results Lumbar AP/lateral x-ray with flexion/extension views: report reviewed, image reviewed (X-rays of her lumbar spine are reviewed. She has a scoliotic curvature in her lumbar spine with significant disc degeneration particular L3 4 and L4 5. There is a slight lateral and anterior listhesis at L3 4 and L4 5. She does have some increased density at her bowels and multiple surgical clips. There is no obvious fracture or dislocation.) Assessment and Plan Assessment: Acute on chronic low back pain with right lower extremity neuropathy No specific neurologic acute loss at the right lower extremity Intractable right lower extremity radiculopathy and minimal ability to ambulate Plan: Acute on chronic right lower extremity radiculopathy and low back pain Chronic scoliosis with anterior and lateral listhesis L3 4 L4 5 History of MS The patient has been having severe pain in her back and lower extremity likely due to compressive changes at her nerve root from her lumbar spine. She has tried epidural steroid injections in the past with limited relief but this may be a reasonable alternative for her at this point as she is having an acute exacerbation and she may do well with interventional pain management with epidural steroid injections. Pain management has been counseled in the real evaluate the patient today for the possibility of epidural steroid injections. I think this is a good alternative for her and I do not plan acute surgical intervention for The patient has been on oral and IV medications. She is continuing on her IV steroid and hopefully that will be able to be tapered down per medicine and she' ll be able to continue an oral medication regimen as per medicine and pain management service and PMNR service. I would defer medical management to them. We discussed other possibilities given the fact that she does have significant disc degeneration scoliotic curvature with her low back and lower extremity symptoms. Surgery would be an option for her at a later date if all conservative measures were to fail and if she were not having significant improvement. She is very hopeful to avoid surgery if at all possible and she does not plan on pursuing any sort of surgery on this admission. As long as he is neurologically intact she can continue to be treated conservatively and I can follow her up on an outpatient basis. Time with Patient: Greater than 30
[2017-06-15] MEDS: GABAPENTIN 400 MG CAP PO SCH ×2 (10:30→16:06)
[2017-06-15] MEDS: OXYBUTYNIN CHLORIDE 5 MG TAB PO SCH ×2 (10:32→16:07)
[2017-06-15] MEDS: IMIPRAMINE 10 MG TAB PO SCH ×2 (10:33→16:07)
--- NOTE | 2017-06-15 11:37 | P.PCN ---
Date of Procedure: 06/15/17 Surgeon: Ricardo Lopez Pathology: none sent Condition: stable Disposition: PACU Description of Procedure: PREOPERATIVE DIAGNOSIS: 1-Lumbar radiculitis. POSTOPERATIVE DIAGNOSIS: 1-Lumbar radiculitis. PROCEDURE 1. Lumbar epidural steroid injection under fluoroscopic guidance at the L4-L5 level. 2. Lumbar epidurogram. ANESTHESIA: Local with 1% lidocaine; IV sedation with Versed/fentanyl. EBL: Minimal PROCEDURE INDICATION: This is a 51-year-old female admitted to the hospital with MS exacerbation with associated low back pain and radiculitis symptoms unresponsive to conservative treatment. Fluoroscopy was used to optimize visualization of the needle placement and to maximize safety. Patient does have history of MS but has had numerous epidural steroid injections before without issues. No use of blood thinners. PROCEDURE DESCRIPTION / TECHNIQUE: The patient was seen and identified in the preoperative area. Risks, benefits, complications, and alternatives were discussed with the patient, including but not limited to bleeding, infection, nerve damage, allergic reactions to medications, and incomplete pain relief. The patient agreed to proceed with the procedure and signed the consent after all questions were answered. IV was started, and vital signs were stable. Patient was taken to the OR and time out was completed to confirm patient position, procedure, laterality of pain, and allergies. The patient was placed in the prone position on procedure table and a pillow was placed under the abdomen to reduce lumbar lordosis. The lumbosacral area was prepped and draped in the usual sterile fashion. Critical pause was taken. Vital signs were closely monitored during the procedure. Conscious sedation was used during the procedure to decrease patients anxiety. Using anterior-posterior fluoroscopy, the L4-L5 interlaminar space was identified and the skin over this site was marked and then infiltrated with 1% lidocaine subcutaneously. Subsequently, a 20-gauge 3.5-inch Tuohy epidural needle was inserted and advanced toward the epidural space using the Loss of resistance technique and guided by AP and lateral fluoroscopy. The correct needle position in the epidural space was verified with the injection of 2 mL of the water soluble contrast dye Isovue 200 contrast and observing an excellent epidurogram with the epidural spread of the dye, after negative aspiration for blood and CSF and in the absence of paresthesias. Again after negative aspiration, a 6 ml mixture containing 40 mg of Depo Medrol and 3 ml of preservative free Normal Saline, and 2 ml of preservative free lidocaine 1% solution was injected and a washout of epidurogram was seen. Needle was withdrawn intact, skin was cleansed, and bandages were applied. COMPLICATIONS: None COMMENTS: DISPOSITION / PLANS: The patient was placed in a supine position and transferred to the recovery area in a stable condition for observation. There was no evidence of lower extremity motor or sensory deficit after the procedure. Patient was discharged from the recovery room after meeting discharge criteria. Home discharge instructions were given to the patient by the staff. The patient was reexamined prior to discharge and there were no issues. The patient will return to the care of the hospitalists and follow up with her neurologist/pain physician Dr. Azul as an outpatient.
--- NOTE | 2017-06-15 11:56 | FL ---
EXAMINATION TYPE: FL guided pain mgmt statistic DATE OF EXAM: 06/15/2017 CLINICAL HISTORY: Low back pain. TECHNIQUE: Fluoroscopy. COMPARISON: None. FINDINGS: Fluoroscopic guidance was provided during pain relief procedure performed by Dr. Lopez . A total of 11 seconds of fluoroscopic time was utilized during the procedure and 3 spot images are ac quired. Images acquired shows needle localization at several levels in the lower lumbar spine epidur al space with contrast injection. IMPRESSION: As Above.
--- NOTE | 2017-06-15 13:39 | P.PN ---
Progress Note - Text Progress Note Date: 06/15/17 Lumbar epidural steroid injection completed earlier today. Ms. Rosado is a longtime patient of Dr. Azul, who has followed her for for her MS and for her chronic back pain and treated her with opioids and various adjunct medications. There is no indication to adjust her chronic opioid medications as the MS exacerbation and radicular symptoms from disc herniation should be treated with IV steroids and intervention, which was already done earlier today , as opposed to escalation in her chronic opioid therapy. Our service will not be prescribing her opioids in the outpatient setting as she already has a regular pain management physician in Dr. Azul; if needed and if they feel comfortable doing so, the hospitalist team can prescribe a few days worth of opioids upon discharge so the patient can return to see Dr. Azul and his clinic can resume her medical management. Thank you for the consult.
[2017-06-15] MEDS ORDERED: POTASSIUM CHLORIDE ER 20 MEQ TAB.ER PO STA (14:07)
[2017-06-15 14:22] VITALS: BP 128/70; PULSE 91; RESP 18; TEMP 98.4
--- NOTE | 2017-06-16 08:43 | DS ---
DISCHARGE SUMMARY DATE OF SERVICE: 06/15/2017. FINAL DIAGNOSES: 1. Back pain, possible acute degenerative joint disease, status post back injections. 2. History of multiple sclerosis with no evidence of any exacerbation. 3. Asymptomatic bacteriuria. 4. Fibromyalgia. 5. Hypertension. DISCHARGE DISPOSITION: The patient will be discharged in stable condition with guarded prognosis. HISTORY OF PRESENT ILLNESS: This 51-year-old woman with a past medical history of multiple medical problems admitted with history of back pain, no weakness demonstrated. Patient seen by Neurology and Pain Management performed lumbar epidural steroid injection under fluoroscopic guidance. The patient will be discharged home in stable condition with guarded prognosis. On exam, vitals are stable. CARDIOVASCULAR: S1 and S2 muffled. ABDOMEN: Soft. NERVOUS SYSTEM: No focal deficit. The patient will be discharged. 1. Diet is cardiac diet. 2. Activity limited until followup. 3. Follow up with Dr. Luis in 2 to 3 days. 4. Follow up with Dr. Carrillo and Dr. Azul as recommended. Medications are: 1. Cymbalta 60 mg p.o. q.a.m. 2. Gilenya 0.5 mg p.o. daily. 3. Neurontin 800 mg p.o. t.i.d. 4. [place] 10 mg p.o. t.i.d. p.r.n. 5. Motrin 800 mg p.o. t.i.d. 6. Tofranil 10 mg p.o. t.i.d. 7. Probiotic 1 tab p.o. daily. 8. Levaquin 500 mg p.o. daily for 5 days. 9. Lisinopril 10 mg 1 tab p.o. q.a.m. 10.Ditropan 5 mg p.o. t.i.d. Once again, the patient will be discharged in stable condition with guarded prognosis. MMODL / IJN: [id number] /
--- NOTE | 2017-06-26 10:43 | CDI ---
Last Revision, February 2017 Documentation Clarification Form Date: 06/26/17 From: Johanna Jean Pierre Pamela Jefferson, Clinical Documentation Improvement Specialist between 8:30 am & 5 pm Tanisha Admit Date: 06/14/2017 11:00:00 AM Patient Name: Tatyana Rosado Visit Number: [id number] Discharge Date: 06/15/17 ATTENTION: The Clinical Documentation Specialists (CDI) and [facility] Coding Staff appreciate your assistance in clarifying documentation. Please respond to the clarification below the line at the bottom and electronically sign. The CDI & [facility] Coding staff will review the response and follow-up if needed. Please note: Queries are made part of the Legal Health Record. If you have any questions, please contact the author of this message via ITS. Dr. Blair Ricci Conflicting documentation has been found in the medical record. Per Dr Owen the patient has a UTI. Per discharge summary and asymptomatic bacteriuria. Urinalysis revealed: Ketones-1+, Leukocyte Esterase - moderate, WBC-15, Bacteria -occasional Urine Culture: Klebsiella pneumoniae >100.000 CFU/ML History/Risk Factors: Has hx of UTI's, MS Treatment: Rec'd Rocephin IV once In your opinion what is the most clinically appropriate diagnosis for this patient? Urinary tract infection due to Klebsiella pneumonia Asymptomatic bacteriuria Other explanation of clinical findings Unable to determine (no explanation for clinical findings) Please continue to document in your progress notes and discharge summary in order to capture severity of illness and risk of mortality. Include clinical findings that support your diagnosis. uti with k. pneumoniae MTDD
== END 2017-06-15 16:49 | disposition home or self-care (01) | DRG 552 ==
LOC: EC 08:24 → 6PED 11:00
PROVIDERS: ADMIT Internal Medicine; ATTEND Internal Medicine
PROC: 3E0S33Z Introduction of Anti-inflammatory into Epidural Space, Percutaneous Approach (ICD-10-PCS; principal; 2017-06-15)
PROC: 3E0S3BZ Introduction of Anesthetic Agent into Epidural Space, Percutaneous Approach (ICD-10-PCS; 2017-06-15)
DX: M51.16 Intervertebral disc disorders with radiculopathy, lumbar region (principal); G35 Multiple sclerosis; N39.0 Urinary tract infection, site not specified; M41.9 Scoliosis, unspecified; N31.9 Neuromuscular dysfunction of bladder, unspecified; B96.1 Klebsiella pneumoniae [K. pneumoniae] as the cause of diseases classified elsewhere; N87.1 Moderate cervical dysplasia; M43.16 Spondylolisthesis, lumbar region; G89.4 Chronic pain syndrome; M70.71 Other bursitis of hip, right hip; B00.1 Herpesviral vesicular dermatitis; J45.909 Unspecified asthma, uncomplicated; M79.7 Fibromyalgia; K21.9 Gastro-esophageal reflux disease without esophagitis; I10 Essential (primary) hypertension; R26.9 Unspecified abnormalities of gait and mobility; F41.9 Anxiety disorder, unspecified; F31.9 Bipolar disorder, unspecified; E87.6 Hypokalemia; Z79.899 Other long term (current) drug therapy; Z90.49 Acquired absence of other specified parts of digestive tract; Z87.440 Personal history of urinary (tract) infections; Z98.84 Bariatric surgery status; Z91.018 Allergy to other foods; Z82.49 Family history of ischemic heart disease and other diseases of the circulatory system
CPT/HCPCS: 36415; 72100; 73502; 80053; 81001; 81025; 85025; 85610; 85652; 85730; 86140; 87040; 87077; 87086; 87186; 96361; 96365; 96375; 99284

== ENCOUNTER 2017-08-29 16:10 | Inpatient (IN) | payer MEDICARE, OTHER ==
[2017-08-29] MEDS ORDERED: SODIUM CHLORIDE 0.9% 1,000 ML IV STA ×3 (17:04→18:19)
--- NOTE | 2017-08-29 17:07 | ED ---
Recheck HPI - General Chief Complaint: Recheck/Abnormal Lab/Rx Stated Complaint: hypotension Time Seen by Provider: 08/29/17 16:50 Source: patient, RN notes reviewed Mode of arrival: wheelchair Limitations: no limitations - History of Present Illness Initial Comments: This is a 51-year-old female history of MS history of neurogenic bladder history of CMV who went to get a Pap smear today was found have a blood pressure 63/30. She does states she's been feeling Weak and sluggish for the past week she denies any bleeding fevers chills nausea vomiting sweats chest pain or other symptoms. No dysuria no hematuria. Per her caregiver she has a couple more pale than usual. No other modifying factors noted at this time MD Complaint: other - Related Data Home Medications Medication Instructions Recorded Confirmed Oxybutynin Chloride [Ditropan] 5 mg PO DAILY 01/15/14 08/29/17 Gabapentin [Neurontin] 800 mg PO TID 12/21/15 08/29/17 Ibuprofen [Motrin] 800 mg PO AC-TID 12/21/15 08/29/17 DULoxetine HCL 60 mg PO QAM 03/25/16 08/29/17 HYDROcodone/APAP 10-325MG [[place] 1 tab PO TID PRN 08/29/17 08/29/17 10-325] Imipramine [Tofranil] 10 mg PO BID 08/29/17 08/29/17 Losartan/Hydrochlorothiazide 1 tab PO DAILY 08/29/17 08/29/17 [Losartan-Hctz 100-12.5 mg Tab] Mirtazapine [Remeron] 15 mg PO HS 08/29/17 08/29/17 Morphine Sulfate ER [Ms Contin] 30 mg PO Q12HR 08/29/17 08/29/17 Omeprazole 40 mg PO DAILY 08/29/17 08/29/17 traMADol HCL [Ultram] 50 mg PO TID PRN 08/29/17 08/29/17 Allergies Allergy/AdvReac Type Severity Reaction Status Date / Time walnut Allergy Intermediate Anaphylaxis Verified 08/29/17 17:18 cantaloupe Allergy Intermediate Anaphylaxis Uncoded 08/29/17 17:18 Review of Systems ROS Statement: Those systems with pertinent positive or pertinent negative responses have been documented in the HPI. ROS Other: All systems not noted in ROS Statement are negative. Past Medical History Past Medical History: Asthma, Fibromyalgia, GERD/Reflux, Hypertension, Musculoskeletal Disorder, Neurologic Disorder, Pneumonia Additional Past Medical History / Comment(s): MS for 22 yrs, NEUROGENIC BLADDER (STRAIGHT CATHS), uti's, uti with sepsis, hypokalemia and hyponatremia and elevated/fluctuating liver enzymes-worked up at [facility] and no cause found, iron deficiency anemia, lumbar DDD, L3 herniated disc, pinched nerve at L5 with R leg sciatica, chronic back pain, gait dysfunction, balance issues, falls, incisional and umbilical hernias, stomach ulcers, numbness and tingling bilateral feet. History of Any Multi-Drug Resistant Organisms: None Reported Past Surgical History: Appendectomy, Bariatric Surgery, Bladder Surgery, Cholecystectomy, Orthopedic Surgery, Uterine Ablation Additional Past Surgical History / Comment(s): Mediport to left chest, Joseline-en- Y BARIATRIC SX 1999 with 165# wt loss, 2001 ABDOMINOPLASTY AND BREAST AUGMENTATION, PAIN INJECTIONS to back AT OA, pubovaginal sling, cystoscopy, cold knife conization, D&C, R foot ORIF with pins. Past Anesthesia/Blood Transfusion Reactions: No Reported Reaction Past Psychological History: Anxiety, Bipolar, Depression Smoking Status: Never smoker Past Alcohol Use History: None Reported Past Drug Use History: None Reported, Marijuana, Opiates - Past Family History Father Family Medical History: Hypertension Additional Family Medical History / Comment(s): DAD IS 72 years old. He had a OK at the age of 60 yrs. He has had CABG. Mother Family Medical History: No Reported History Additional Family Medical History / Comment(s): Mother had a closed head injury from a MVA and deteriorated over time. She is . General Exam - General Exam Comments Initial Comments: This is a well-developed well-nourished awake alert oriented 3 female Limitations: no limitations General appearance: alert Head exam: Present: atraumatic, normocephalic, normal inspection Eye exam: Present: normal appearance, PERRL, EOMI. Absent: scleral icterus, conjunctival injection, periorbital swelling ENT exam: Present: mucous membranes dry Neck exam: Present: normal inspection. Absent: tenderness, meningismus, lymphadenopathy Respiratory exam: Present: normal lung sounds bilaterally. Absent: respiratory distress, wheezes, rales, rhonchi, stridor Cardiovascular Exam: Present: regular rate, normal rhythm, normal heart sounds. Absent: systolic murmur, diastolic murmur, rubs, gallop, clicks GI/Abdominal exam: Present: soft, normal bowel sounds. Absent: distended, tenderness, guarding, rebound, rigid, bruit, pulsatile mass, hernia Rectal exam: Present: deferred Extremities exam: Present: normal inspection, full ROM, normal capillary refill. Absent: tenderness, pedal edema, joint swelling, calf tenderness Back exam: Present: full ROM, other (There is excoriation the back noted from where the patient's been scratching she states she's been itchy for about 2 or 3 days.) Neurological exam: Present: alert, oriented X3, CN II-XII intact Psychiatric exam: Present: normal affect, normal mood Skin exam: Present: warm, dry, intact, pallor. Absent: rash Course Vital Signs 08/29/17 08/29/17 08/29/17 16:28 17:13 18:49 Temperature 98.0 F Pulse Rate 85 91 78 Respiratory 16 18 18 Rate Blood Pressure 63/49 81/51 95/59 O2 Sat by Pulse 98 100 98 Oximetry 08/29/17 08/29/17 08/29/17 19:24 20:28 21:18 Temperature Pulse Rate 72 74 77 Respiratory 18 18 18 Rate Blood Pressure 106/58 97/56 99/59 O2 Sat by Pulse 95 98 100 Oximetry 08/29/17 21:45 Temperature Pulse Rate 79 Respiratory 18 Rate Blood Pressure 100/59 O2 Sat by Pulse 100 Oximetry - Reevaluation(s) Reevaluation #1: 08/29/17 18:30 Patient is feeling no difference she still demonstrates a low blood pressure. She is awake alert and sitting up however. Reevaluation #2: 08/29/17 21:54 I did reevaluate the patient she is more cognizant. She does states she had a history of elevated liver enzymes in the past from some unknown drug. Medical Decision Making - Medical Decision Making I did reevaluate patient several occasions for blood pressure is improved she sees more coherent at this time she does have a history of MS she recently had an exacerbation this may represent a recurrence. Patient will be admitted for inpatient treatment. - Lab Data Result diagrams: 08/29/17 17:11 08/29/17 17:11 Lab Results 08/29/17 08/29/17 08/29/17 Range/Units 17:11 17:11 17:11 WBC 3.7 L (3.8-10.6) k/uL RBC 4.09 (3.80-5.40) m/uL Hgb 10.0 L (11.4-16.0) gm/dL Hct 32.3 L (34.0-46.0) % MCV 79.0 L (80.0-100.0) fL MCH 24.5 L (25.0-35.0) pg MCHC 31.0 (31.0-37.0) g/dL RDW 20.7 H (11.5-15.5) % Plt Count 364 (150-450) k/uL Neutrophils % 79 % Lymphocytes % 7 % Monocytes % 9 % Eosinophils % 2 % Basophils % 0 % Neutrophils # 3.0 (1.3-7.7) k/uL Lymphocytes # 0.3 L (1.0-4.8) k/uL Monocytes # 0.3 (0-1.0) k/uL Eosinophils # 0.1 (0-0.7) k/uL Basophils # 0.0 (0-0.2) k/uL Hypochromasia Marked Anisocytosis Moderate Microcytosis Slight Sodium 129 L (137-145) mmol/L Potassium 3.2 L (3.5-5.1) mmol/L Chloride 92 L (98-107) mmol/L Carbon Dioxide 24 (22-30) mmol/L Anion Gap 13 mmol/L BUN 22 H (7-17) mg/dL Creatinine 1.30 H (0.52-1.04) mg/dL Est GFR (CKD-EPI)AfAm 56 (>60 ml/min/1.73 sqM) Est GFR (CKD-EPI)NonAf 48 (>60 ml/min/1.73 sqM) Glucose 96 (74-99) mg/dL Calcium 8.9 (8.4-10.2) mg/dL Magnesium 1.9 (1.6-2.3) mg/dL Total Bilirubin 0.3 (0.2-1.3) mg/dL AST 54 H (14-36) U/L ALT 75 H (9-52) U/L Alkaline Phosphatase 241 H (38-126) U/L Ammonia (<30) umol/L Total Creatine Kinase 373 H (30-135) U/L CK-MB (CK-2) 4.0 H* (0.0-2.4) ng/mL CK-MB (CK-2) Rel Index 1.1 Total Protein 5.0 L (6.3-8.2) g/dL Albumin 3.0 L (3.5-5.0) g/dL Amylase (30-110) U/L Lipase (23-300) U/L Urine Color Urine Appearance (Clear) Urine pH (5.0-8.0) Ur Specific [place] (1.001-1.035) Urine Protein (Negative) Urine Glucose (UA) (Negative) Urine Ketones (Negative) Urine Blood (Negative) Urine Nitrite (Negative) Urine Bilirubin (Negative) Urine Urobilinogen (<2.0) mg/dL Ur Leukocyte Esterase (Negative) Urine RBC (0-5) /hpf Urine WBC (0-5) /hpf Urine WBC Clumps (None) /hpf Ur Squamous Epith Cells (0-4) /hpf Hyaline Casts (0-2) /lpf Urine Mucus (None) /hpf Serum Alcohol mg/dL Hepatitis A IgM Ab 08/29/17 08/29/17 08/29/17 Range/Units 17:11 17:11 19:00 WBC (3.8-10.6) k/uL RBC (3.80-5.40) m/uL Hgb (11.4-16.0) gm/dL Hct (34.0-46.0) % MCV (80.0-100.0) fL MCH (25.0-35.0) pg MCHC (31.0-37.0) g/dL RDW (11.5-15.5) % Plt Count (150-450) k/uL Neutrophils % % Lymphocytes % % Monocytes % % Eosinophils % % Basophils % % Neutrophils # (1.3-7.7) k/uL Lymphocytes # (1.0-4.8) k/uL Monocytes # (0-1.0) k/uL Eosinophils # (0-0.7) k/uL Basophils # (0-0.2) k/uL Hypochromasia Anisocytosis Microcytosis Sodium (137-145) mmol/L Potassium (3.5-5.1) mmol/L Chloride (98-107) mmol/L Carbon Dioxide (22-30) mmol/L Anion Gap mmol/L BUN (7-17) mg/dL Creatinine (0.52-1.04) mg/dL Est GFR (CKD-EPI)AfAm (>60 ml/min/1.73 sqM) Est GFR (CKD-EPI)NonAf (>60 ml/min/1.73 sqM) Glucose (74-99) mg/dL Calcium (8.4-10.2) mg/dL Magnesium (1.6-2.3) mg/dL Total Bilirubin (0.2-1.3) mg/dL AST (14-36) U/L ALT (9-52) U/L Alkaline Phosphatase (38-126) U/L Ammonia 23 (<30) umol/L Total Creatine Kinase (30-135) U/L CK-MB (CK-2) (0.0-2.4) ng/mL CK-MB (CK-2) Rel Index Total Protein (6.3-8.2) g/dL Albumin (3.5-5.0) g/dL Amylase 31 (30-110) U/L Lipase 253 (23-300) U/L Urine Color Urine Appearance (Clear) Urine pH (5.0-8.0) Ur Specific [place] (1.001-1.035) Urine Protein (Negative) Urine Glucose (UA) (Negative) Urine Ketones (Negative) Urine Blood (Negative) Urine Nitrite (Negative) Urine Bilirubin (Negative) Urine Urobilinogen (<2.0) mg/dL Ur Leukocyte Esterase (Negative) Urine RBC (0-5) /hpf Urine WBC (0-5) /hpf Urine WBC Clumps (None) /hpf Ur Squamous Epith Cells (0-4) /hpf Hyaline Casts (0-2) /lpf Urine Mucus (None) /hpf Serum Alcohol mg/dL Hepatitis A IgM Ab NEGATIVE 08/29/17 08/29/17 Range/Units 19:23 20:20 WBC (3.8-10.6) k/uL RBC (3.80-5.40) m/uL Hgb (11.4-16.0) gm/dL Hct (34.0-46.0) % MCV (80.0-100.0) fL MCH (25.0-35.0) pg MCHC (31.0-37.0) g/dL RDW (11.5-15.5) % Plt Count (150-450) k/uL Neutrophils % % Lymphocytes % % Monocytes % % Eosinophils % % Basophils % % Neutrophils # (1.3-7.7) k/uL Lymphocytes # (1.0-4.8) k/uL Monocytes # (0-1.0) k/uL Eosinophils # (0-0.7) k/uL Basophils # (0-0.2) k/uL Hypochromasia Anisocytosis Microcytosis Sodium (137-145) mmol/L Potassium (3.5-5.1) mmol/L Chloride (98-107) mmol/L Carbon Dioxide (22-30) mmol/L Anion Gap mmol/L BUN (7-17) mg/dL Creatinine (0.52-1.04) mg/dL Est GFR (CKD-EPI)AfAm (>60 ml/min/1.73 sqM) Est GFR (CKD-EPI)NonAf (>60 ml/min/1.73 sqM) Glucose (74-99) mg/dL Calcium (8.4-10.2) mg/dL Magnesium (1.6-2.3) mg/dL Total Bilirubin (0.2-1.3) mg/dL AST (14-36) U/L ALT (9-52) U/L Alkaline Phosphatase (38-126) U/L Ammonia (<30) umol/L Total Creatine Kinase (30-135) U/L CK-MB (CK-2) (0.0-2.4) ng/mL CK-MB (CK-2) Rel Index Total Protein (6.3-8.2) g/dL Albumin (3.5-5.0) g/dL Amylase (30-110) U/L Lipase (23-300) U/L Urine Color Yellow Urine Appearance Cloudy H (Clear) Urine pH 5.5 (5.0-8.0) Ur Specific [place] 1.014 (1.001-1.035) Urine Protein Trace H (Negative) Urine Glucose (UA) Negative (Negative) Urine Ketones Trace H (Negative) Urine Blood Small H (Negative) Urine Nitrite Negative (Negative) Urine Bilirubin Negative (Negative) Urine Urobilinogen <2.0 (<2.0) mg/dL Ur Leukocyte Esterase Large H (Negative) Urine RBC 2 (0-5) /hpf Urine WBC 8 H (0-5) /hpf Urine WBC Clumps Few H (None) /hpf Ur Squamous Epith Cells 1 (0-4) /hpf Hyaline Casts 64 H (0-2) /lpf Urine Mucus Rare H (None) /hpf Serum Alcohol <10 mg/dL Hepatitis A IgM Ab - EKG Data -: EKG Interpreted by Ia EKG shows normal: sinus rhythm (Sinus rhythm 81. Interval 16 QRS duration 94 QT since QTC of 412/478 nonspecific inferior changes short VT interval) - Radiology Data Radiology results: report reviewed, image reviewed Disposition Clinical Impression: Multiple sclerosis exacerbation, Hypotensive episode, Dehydration, Acute confusional state, Hypokalemia Disposition: ADMITTED IP TO THIS HOSP Condition: Stable Referrals: Mark Luis MD [Primary Care Provider] - 1-2 days
[2017-08-29 17:21] LABS: Anisocytosis Moderate; Basophils % (A) 0 %; Eosinophils # (A) 0.1 k/uL (0-0.7); Eosinophils % (A) 2 %; HCT 32.3 % (34.0-46.0); Hypochromasia Marked; Lymphocytes # (A) 0.3 k/uL (1.0-4.8); Lymphocytes % (A) 7 %; MCH 24.5 pg (25.0-35.0); Mean Platelet Volume 6.6; Microcytosis Slight; Monocytes # (A) 0.3 k/uL (0-1.0); Monocytes % (A) 9 %; Neutrophils % (A) 79 %; Platelet Count 364 k/uL (150-450); RBC 4.09 m/uL (3.80-5.40); RDW 20.7 % (11.5-15.5); WBC 3.7 k/uL (3.8-10.6)
--- NOTE | 2017-08-29 17:34 | XR ---
EXAMINATION TYPE: XR chest 1V portable DATE OF EXAM: 08/29/2017 COMPARISON: 06/23/2014 HISTORY: Hypertension TECHNIQUE: Single frontal view of the chest is obtained. FINDINGS: There is no heart failure nor confluent pneumonic infiltrate. Costophrenic angles are modest[place] r. There are chest leads. There is probably hiatal hernia. There is left central venous catheter with tip in the superior vena cava. IMPRESSION: No active cardiopulmonary disease. No change.
[2017-08-29 17:38] LABS: Calcium 8.9 mg/dL (8.4-10.2); Magnesium 1.9 mg/dL (1.6-2.3); Potassium 3.2 mmol/L (3.5-5.1); Total Bilirubin 0.3 mg/dL (0.2-1.3)
[2017-08-29] MEDS ORDERED: POTASSIUM CHLORIDE ER 20 MEQ TAB.ER PO STA (18:20)
[2017-08-29] MEDS ORDERED: hydrOXYzine HCL 25 MG TAB PO STA (18:33)
[2017-08-29 19:08] LABS: Amylase 31 U/L (30-110); Lipase 253 U/L (23-300)
[2017-08-29 19:39] LABS: Appearance,Urine Cloudy (Clear); Bilirubin,Urine Negative (Negative); Blood,Urine Small (Negative); Color,Urine Yellow; Glucose,Urine (UA) Negative (Negative); Hyaline Casts,Urine 64 /lpf (0-2); Ketones,Urine Trace (Negative); Leukocyte Esterase,Urine Large (Negative); Mucus,Urine Rare /hpf; Nitrite,Urine Negative (Negative); PH, Urine 5.5 (5.0-8.0); Protein,Urine Trace (Negative); RBC,Urine 2 /hpf (0-5); Specific Gravity,Urine 1.014 (1.001-1.035); Squamous Epithelial Cell,Urine 1 /hpf (0-4); Urobilinogen,Urine <2.0 mg/dL (<2.0); WBC,Urine 8 /hpf (0-5)
--- NOTE | 2017-08-29 20:26 | CT ---
EXAMINATION TYPE: CT brain wo con DATE OF EXAM: 08/29/2017 COMPARISON: 06/23/2014 HISTORY: Hypotension CT DLP: 1126 mGycm Automated exposure control for dose reduction was used. FINDINGS: There is mild cerebral atrophy. There is hypodensity in the periventricular white matter. There is a 2 cm area of cortical hypodensity in the right posterior frontal lobe. There is no midline shift. The re is no evidence of intracranial hemorrhage. The calvarium is intact. IMPRESSION: CEREBRAL ATROPHY AND MILD CHRONIC SMALL VESSEL ISCHEMIA. THERE IS EVIDENCE OF A SMALL OLD RIGHT POSTE RIOR FRONTAL LOBE CORTICAL INFARCT WITHOUT CHANGE COMPARED TO OLD EXAM. NO ACUTE INTRACRANIAL ABNORMA LITY.
[2017-08-29 20:41] LABS: Hepatitis A AB IgM Index 0.01; Hepatitis A Antibody IgM NEGATIVE
[2017-08-29] MEDS ORDERED: methylPREDNISolone SOD SUCCI 125 MG/2 ML VIAL IV STA (21:24)
[2017-08-29] MEDS ORDERED: NALOXONE 0.4 MG/ML 1 ML VIAL IV PRN (21:54)
[2017-08-29] MEDS ORDERED: HYDROcodone/APAP 10-325MG 1 EACH TAB PO PRN (21:57)
[2017-08-29] MEDS ORDERED: traMADol 50 MG TAB PO PRN (21:57)
[2017-08-29 22:08] LABS: Amphetamine Screen,Urine Not Detected (NotDetected); Barbiturate Screen,Urine Not Detected (NotDetected); Benzodiazepines Screen,Urine Not Detected (NotDetected); Cocaine Screen,Urine Not Detected (NotDetected); Methadone Screen, Urine Not Detected (NotDetected); Opiate Screen,Urine Detected (NotDetected); Oxycodone Screen, Urine Not Detected (NotDetected); Phencyclidine Screen,Urine Not Detected (NotDetected); Tricyclic Antidepressant,Urine Not Detected (NotDetected); Urn Cannabinoid Scrn Not Detected (NotDetected)
[2017-08-29] MEDS: SODIUM CHLORIDE 0.9% 1,000 ML IV SCH (23:21)
[2017-08-29] MEDS: GABAPENTIN 400 MG CAP PO SCH (23:22)
[2017-08-30] MEDS ORDERED: methylPREDNISolone SOD SUCCI 125 MG/2 ML VIAL IV SCH
[2017-08-30] MEDS: methylPREDNISolone SOD SUCCI 250 MG in SODIUM CHLORIDE 0.9% 100 ML IVPB SCH ×3 (00:02→12:50)
[2017-08-30] MEDS ORDERED: Potassium Replacement Protocol 1 EACH MISC MISCELLANE PRN ×2 (00:54→08:35)
[2017-08-30 01:19] LABS: Hepatitis B Core IgM Non-Reactive (Non-Reactive)
[2017-08-30] MEDS: POTASSIUM CHLORIDE ER 20 MEQ TAB.ER PO SCH ×4 (01:35→10:39)
[2017-08-30 07:18] LABS: Glucose,Whole Blood 147 mg/dL (75-99)
[2017-08-30] MEDS ORDERED: PANTOPRAZOLE 40 MG TABLET PO SCH (07:30)
[2017-08-30] MEDS: INSULIN ASPART 100 UNIT/ML 1 ML 10 ML VIAL SQ SCH ×2 (07:57→12:47)
[2017-08-30] MEDS ORDERED: MORPHINE SULFATE ER 30 MG TABLET PO SCH (09:00)
[2017-08-30] MEDS ORDERED: DULoxetine HCL 60 MG CAPSULE.DR PO SCH (09:00)
[2017-08-30] MEDS ORDERED: OXYBUTYNIN CHLORIDE 5 MG TAB PO SCH (09:00)
[2017-08-30] MEDS ORDERED: IMIPRAMINE 10 MG TAB PO SCH (09:00)
[2017-08-30] MEDS ORDERED: LOSARTAN-HCTZ 50-12.5 MG 1 EACH TAB PO SCH (09:00)
[2017-08-30] MEDS: IBUPROFEN 800 MG TAB PO SCH ×2 (09:32→12:11)
[2017-08-30] MEDS: GABAPENTIN 400 MG CAP PO SCH (09:32)
[2017-08-30] MEDS: SODIUM CHLORIDE 0.9% 1,000 ML IV SCH (10:39)
[2017-08-30 11:16] LABS: Glucose,Whole Blood 176 mg/dL (75-99)
[2017-08-30] MEDS ORDERED: SODIUM CHLORIDE 0.9% 1,000 ML IV ONE (13:22)
[2017-08-30 14:41] VITALS: BP 124/85; PULSE 82; RESP 18; TEMP 97.6
--- NOTE | 2017-08-30 16:34 | P.HPIM ---
History of Present Illness 51-year-old pleasant female came in after she went sent in from outpatient laboratory when she was found to have low blood pressure of for 63 x 30 although patient is symptomatic except for mild lightheadedness. Patient was given IV fluids. Patient did lose weight recently patient is on hydrochlorothiazide and losartan combination pill. There are no signs or symptoms of sepsis there is no new weakness patient does have history of multiple sclerosis although patient was started on steroids and and patient is not in numbness exacerbation clinically at this point of time. Patient had a cough dysuria denied any nausea vomiting. Patient unfortunately dysuria her antidepressant medications today morning. After IV fluids patient blood pressure responded well patient blood pressure is in low 100 systolic. Patient was hyponatremic as well with mildly worsening renal function to 1.3 which is again secondary to antidepressant medications which is losartan hydrocodone for his accommodation. Patient is a she did go home. I'll give her 1 more liter bolus after that patient will be discharged and losartan hydrocodone thiazide will be discontinued and patient the will need a repeat the basic metabolic profile in 2-3 days. Patient does have an appointment tomorrow with a physician because of which she will lotion to be discharged. Review of Systems REVIEW OF SYSTEMS: CONSTITUTIONAL: No fever, no malaise, no fatigue. HEENT: No recent visual problems or hearing problems. Denied any sore throat. CARDIOVASCULAR: No chest pain, orthopnea, PND, no palpitations, no syncope. PULMONARY: No shortness of breath, no cough, no hemoptysis. GASTROINTESTINAL: No diarrhea, no nausea, no vomiting, no abdominal pain. Normoactive bowel sounds. NEUROLOGICAL: No headaches, no weakness, no numbness. HEMATOLOGICAL: Denies any bleeding or petechiae. GENITOURINARY: Denies any burning micturition, frequency, or urgency. MUSCULOSKELETAL/RHEUMATOLOGICAL: Denies any joint pain, swelling, or any muscle pain. ENDOCRINE: Denies any polyuria or polydipsia. The rest of the 14-point review of systems is negative. Past Medical History Past Medical History: Asthma, Fibromyalgia, GERD/Reflux, Hypertension, Musculoskeletal Disorder, Neurologic Disorder, Pneumonia Additional Past Medical History / Comment(s): MS for 22 yrs, NEUROGENIC BLADDER (STRAIGHT CATHS), uti's, uti with sepsis, hypokalemia and hyponatremia and elevated/fluctuating liver enzymes-worked up at [facility] and no cause found, iron deficiency anemia, lumbar DDD, L3 herniated disc, pinched nerve at L5 with R leg sciatica, chronic back pain, gait dysfunction, balance issues, falls, incisional and umbilical hernias, stomach ulcers, numbness and tingling bilateral feet. History of Any Multi-Drug Resistant Organisms: None Reported Past Surgical History: Appendectomy, Bariatric Surgery, Bladder Surgery, Cholecystectomy, Orthopedic Surgery, Uterine Ablation Additional Past Surgical History / Comment(s): Mediport to left chest, Joseline-en- Y BARIATRIC SX 1999 with 165# wt loss, 2001 ABDOMINOPLASTY AND BREAST AUGMENTATION, PAIN INJECTIONS to back AT OA, pubovaginal sling, cystoscopy, cold knife conization, D&C, R foot ORIF with pins. Past Anesthesia/Blood Transfusion Reactions: No Reported Reaction Past Psychological History: Anxiety, Bipolar, Depression Additional Psychological History / Comment(s): Pt resides normally alone. She recently went to stay with her father d/t back/hip pain and increased weakness in legs. Pt normally can walk unassisted. She does have a walker if needed. Pt states she has a ems driver's license but no vehicle, her dad drives her to appts or she has [employer] set up a ems driver for appts and to get groceries. Smoking Status: Never smoker Past Alcohol Use History: None Reported Past Drug Use History: None Reported, Marijuana, Opiates - Past Family History Father Family Medical History: Hypertension Additional Family Medical History / Comment(s): DAD IS 72 years old. He had a [place] at the age of 60 yrs. He has had CABG. Mother Family Medical History: No Reported History Additional Family Medical History / Comment(s): Mother had a closed head injury from a MVA and deteriorated over time. She is . Medications and Allergies Home Medications Medication Instructions Recorded Confirmed Type Oxybutynin Chloride [Ditropan] 5 mg PO DAILY 01/15/14 08/29/17 History Gabapentin [Neurontin] 800 mg PO TID 12/21/15 08/29/17 History Ibuprofen [Motrin] 800 mg PO AC-TID 12/21/15 08/29/17 History DULoxetine HCL 60 mg PO QAM 03/25/16 08/29/17 History HYDROcodone/APAP 10-325MG [[place] 1 tab PO TID PRN 08/29/17 08/29/17 History 10-325] Imipramine [Tofranil] 10 mg PO BID 08/29/17 08/29/17 History Mirtazapine [Remeron] 15 mg PO HS 08/29/17 08/29/17 History Morphine Sulfate ER [Ms Contin] 30 mg PO Q12HR 08/29/17 08/29/17 History Omeprazole 40 mg PO DAILY 08/29/17 08/29/17 History traMADol HCL [Ultram] 50 mg PO TID PRN 08/29/17 08/29/17 History Allergies Allergy/AdvReac Type Severity Reaction Status Date / Time walnut Allergy Intermediate Anaphylaxis Verified 08/29/17 17:18 cantaloupe Allergy Intermediate Anaphylaxis Uncoded 08/29/17 17:18 Physical Exam Vitals: Vital Signs Temp Pulse Pulse Resp BP BP BP 08/30/17 14:40 97.6 F 82 18 124/85 08/30/17 07:28 97 F L 81 14 113/72 08/30/17 00:15 16 08/29/17 23:05 98.6 F 84 16 122/82 08/29/17 22:25 16 08/29/17 21:45 79 18 100/59 08/29/17 21:18 77 18 99/59 08/29/17 20:28 74 18 97/56 08/29/17 19:24 72 18 106/58 08/29/17 18:49 78 18 95/59 08/29/17 17:13 91 18 81/51 08/29/17 16:28 98.0 F 85 16 63/49 Pulse Ox 08/30/17 14:40 99 08/30/17 07:28 100 08/30/17 00:15 08/29/17 23:05 95 08/29/17 22:25 95 08/29/17 21:45 100 08/29/17 21:18 100 08/29/17 20:28 98 08/29/17 19:24 95 08/29/17 18:49 98 08/29/17 17:13 100 08/29/17 16:28 98 Intake and Output 08/30/17 08/30/17 08/30/17 06:59 14:59 22:59 Intake Total 1410 837 Balance 1410 837 Intake: IV 600 Sodium Chloride 0.9% 1, 600 000 ml @ 75 mls/hr IV . [id number] STA Rx#:[id number] Intake, IV Titration 760 Amount Sodium Chloride 0.9% 1, 560 000 ml @ 80 mls/hr IV . [id number] SHERRY Rx#:[id number] methylPREDNISolone SOD 200 SUCCI 250 mg In Sodium Chloride 0.9% 100 ml @ 100 mls/hr IVPB Q6HR SHERRY Rx#:[id number] Oral 650 237 Other: # Voids 1 PHYSICAL EXAMINATION: GENERAL: The patient is alert and oriented x3, not in any acute distress. Well developed, well nourished. HEENT: Pupils are round and equally reacting to light. EOMI. No scleral icterus. No conjunctival pallor. Normocephalic, atraumatic. No pharyngeal erythema. No thyromegaly. CARDIOVASCULAR: S1 and S2 present. No murmurs, rubs, or gallops. PULMONARY: Chest is clear to auscultation, no wheezing or crackles. ABDOMEN: Soft, nontender, nondistended, normoactive bowel sounds. No palpable organomegaly. MUSCULOSKELETAL: No joint swelling or deformity. EXTREMITIES: No cyanosis, clubbing, or pedal edema. NEUROLOGICAL: Gross neurological examination did not reveal any new focal deficits. SKIN: No rashes. Results CBC & Chem 7: 08/29/17 17:11 08/30/17 04:50 Labs: Abnormal Lab Results - Last 24 Hours (Table) 08/29/17 08/29/17 08/29/17 Range/Units 17:11 17:11 17:11 WBC 3.7 L (3.8-10.6) k/uL Hgb 10.0 L (11.4-16.0) gm/dL Hct 32.3 L (34.0-46.0) % MCV 79.0 L (80.0-100.0) fL MCH 24.5 L (25.0-35.0) pg RDW 20.7 H (11.5-15.5) % Lymphocytes # 0.3 L (1.0-4.8) k/uL Sodium 129 L (137-145) mmol/L Potassium 3.2 L (3.5-5.1) mmol/L Chloride 92 L (98-107) mmol/L BUN 22 H (7-17) mg/dL Creatinine 1.30 H (0.52-1.04) mg/dL POC Glucose (mg/dL) (75-99) mg/dL AST 54 H (14-36) U/L ALT 75 H (9-52) U/L Alkaline Phosphatase 241 H (38-126) U/L Total Creatine Kinase 373 H (30-135) U/L CK-MB (CK-2) 4.0 H* (0.0-2.4) ng/mL Total Protein 5.0 L (6.3-8.2) g/dL Albumin 3.0 L (3.5-5.0) g/dL Urine Appearance (Clear) Urine Protein (Negative) Urine Ketones (Negative) Urine Blood (Negative) Ur Leukocyte Esterase (Negative) Urine WBC (0-5) /hpf Urine WBC Clumps (None) /hpf Hyaline Casts (0-2) /lpf Urine Mucus (None) /hpf Urine Opiates Screen (NotDetected) 08/29/17 08/29/17 08/29/17 Range/Units 19:23 19:23 23:44 WBC (3.8-10.6) k/uL Hgb (11.4-16.0) gm/dL Hct (34.0-46.0) % MCV (80.0-100.0) fL MCH (25.0-35.0) pg RDW (11.5-15.5) % Lymphocytes # (1.0-4.8) k/uL Sodium (137-145) mmol/L Potassium 3.4 L (3.5-5.1) mmol/L Chloride (98-107) mmol/L BUN (7-17) mg/dL Creatinine (0.52-1.04) mg/dL POC Glucose (mg/dL) (75-99) mg/dL AST (14-36) U/L ALT (9-52) U/L Alkaline Phosphatase (38-126) U/L Total Creatine Kinase (30-135) U/L CK-MB (CK-2) (0.0-2.4) ng/mL Total Protein (6.3-8.2) g/dL Albumin (3.5-5.0) g/dL Urine Appearance Cloudy H (Clear) Urine Protein Trace H (Negative) Urine Ketones Trace H (Negative) Urine Blood Small H (Negative) Ur Leukocyte Esterase Large H (Negative) Urine WBC 8 H (0-5) /hpf Urine WBC Clumps Few H (None) /hpf Hyaline Casts 64 H (0-2) /lpf Urine Mucus Rare H (None) /hpf Urine Opiates Screen Detected H (NotDetected) 08/30/17 08/30/17 Range/Units 07:16 11:11 WBC (3.8-10.6) k/uL Hgb (11.4-16.0) gm/dL Hct (34.0-46.0) % MCV (80.0-100.0) fL MCH (25.0-35.0) pg RDW (11.5-15.5) % Lymphocytes # (1.0-4.8) k/uL Sodium (137-145) mmol/L Potassium (3.5-5.1) mmol/L Chloride (98-107) mmol/L BUN (7-17) mg/dL Creatinine (0.52-1.04) mg/dL POC Glucose (mg/dL) 147 H 176 H (75-99) mg/dL AST (14-36) U/L ALT (9-52) U/L Alkaline Phosphatase (38-126) U/L Total Creatine Kinase (30-135) U/L CK-MB (CK-2) (0.0-2.4) ng/mL Total Protein (6.3-8.2) g/dL Albumin (3.5-5.0) g/dL Urine Appearance (Clear) Urine Protein (Negative) Urine Ketones (Negative) Urine Blood (Negative) Ur Leukocyte Esterase (Negative) Urine WBC (0-5) /hpf Urine WBC Clumps (None) /hpf Hyaline Casts (0-2) /lpf Urine Mucus (None) /hpf Urine Opiates Screen (NotDetected) Thrombosis Risk Factor Assmnt - Choose All That Apply Any of the Below Risk Factors Present?: Yes Each Factor Represents 1 point: Age 41-60 years, Obesity (BMI >25) Thrombosis Risk Factor Assessment Total Risk Factor Score: 2 Thrombosis Risk Factor Assessment Level: Low Risk Assessment and Plan Plan: -Hypotension probably due to antihypertensive medications since patient lost some weight her blood pressure is probably under control now may not require any antidepressive medications. Patient is also hyponatremic along with mild acute renal dysfunction from antidepressive medications losartan and had good thiazide will be discontinued patient was asked to check the blood pressure at home patient will be given a bolus of IV fluids and patient will be discharged today. -Multiple sclerosis without any evidence of MS exacerbation. -Gastroesophageal reflux disease -Neurogenic bladder from multiple sclerosis -Acute renal failure: Nonsteroidal anti-inflammatory medications will be discontinued and will also discontinue losartan. Along with hydrochlorothiazide -Hyponatremia: Expected to improve with disc herniation of her chlorothiazide any secondary to hydrochlorothiazide. -Asthma -Fibromyalgia -Gastroesophageal reflux disease
--- NOTE | 2017-08-30 16:34 | P.DS ---
Providers Date of admission: 08/29/17 21:54 Attending physician: Lb Odell Primary care physician: Toby Flores [facility] Course: Please appear to my HPI Patient Condition at Discharge: Stable Plan - Discharge Summary Discharge Rx Participant: No New Discharge Prescriptions: Discontinued Ibuprofen [Motrin] 800 mg PO AC-TID Losartan/Hydrochlorothiazide [Losartan-Hctz 100-12.5 mg Tab] 1 tab PO DAILY No Action Oxybutynin Chloride [Ditropan] 5 mg PO DAILY Gabapentin [Neurontin] 800 mg PO TID DULoxetine HCL 60 mg PO QAM HYDROcodone/APAP 10-325MG [[place] 10-325] 1 tab PO TID PRN PRN Reason: Pain traMADol HCL [Ultram] 50 mg PO TID PRN PRN Reason: Pain Omeprazole 40 mg PO DAILY Morphine Sulfate ER [Ms Contin] 30 mg PO Q12HR Mirtazapine [Remeron] 15 mg PO HS Imipramine [Tofranil] 10 mg PO BID Discharge Medication List Oxybutynin Chloride [Ditropan] 5 mg PO DAILY 01/15/14 [History] Gabapentin [Neurontin] 800 mg PO TID 12/21/15 [History] DULoxetine HCL 60 mg PO QAM 03/25/16 [History] HYDROcodone/APAP 10-325MG [[place] 10-325] 1 tab PO TID PRN 08/29/17 [History] Imipramine [Tofranil] 10 mg PO BID 08/29/17 [History] Mirtazapine [Remeron] 15 mg PO HS 08/29/17 [History] Morphine Sulfate ER [Ms Contin] 30 mg PO Q12HR 08/29/17 [History] Omeprazole 40 mg PO DAILY 08/29/17 [History] traMADol HCL [Ultram] 50 mg PO TID PRN 08/29/17 [History] Follow up Appointment(s)/Referral(s): Mark Luis MD [Primary Care Provider] - 09/05/17 10:50 am Ambulatory/Diagnostic Orders: Basic Metabolic Panel [LAB.AMB] Time Frame: 3 Days, Location: Determined By Patient Discharge Disposition: HOME SELF-CARE
[2017-08-30] MEDS ORDERED: MIRTAZAPINE 15 MG TAB PO SCH (21:00)
== END 2017-08-30 15:19 | disposition home or self-care (01) | DRG 312 ==
LOC: EC 16:10 → 3SUR 21:54
PROVIDERS: ADMIT Internal Medicine; ATTEND Internal Medicine
DX: I95.2 Hypotension due to drugs (principal); E87.1 Hypo-osmolality and hyponatremia; N17.9 Acute kidney failure, unspecified; E86.0 Dehydration; F41.9 Anxiety disorder, unspecified; F31.9 Bipolar disorder, unspecified; G35 Multiple sclerosis; M79.7 Fibromyalgia; E87.6 Hypokalemia; K21.9 Gastro-esophageal reflux disease without esophagitis; I10 Essential (primary) hypertension; N31.9 Neuromuscular dysfunction of bladder, unspecified; J45.909 Unspecified asthma, uncomplicated; T46.5X5A Adverse effect of other antihypertensive drugs, initial encounter; Z82.49 Family history of ischemic heart disease and other diseases of the circulatory system; Z79.899 Other long term (current) drug therapy; Z91.018 Allergy to other foods; Z87.440 Personal history of urinary (tract) infections; Z98.84 Bariatric surgery status; Z90.49 Acquired absence of other specified parts of digestive tract; M51.36 Other intervertebral disc degeneration, lumbar region; M51.26 Other intervertebral disc displacement, lumbar region
CPT/HCPCS: 36415; 70450; 71045; 80053; 80074; 80306; 80320; 81001; 82140; 82150; 82550; 82553; 83690; 83735; 84132; 85025; 93005; 96361; 96374; 99285

== ENCOUNTER → 2017-08-29 | Outpatient (CLI) | payer MEDICARE, OTHER ==
[2017-08-29 15:26] VITALS: BP 77/42; PULSE 86; TEMP 96.1; BMI 27.1
--- NOTE | 2017-08-29 16:29 | P.HPOB ---
History of Present Illness H&P Date: 08/29/17 Chief Complaint: The patient is here for her routine gynecologic exam and mammogram. This is a 51-year-old with an LMP of 2004. The patient has been amenorrhea can sense her endometrial ablation in 2004. FSH testing last year was consistent with the menopause. She is without gynecologic complaints and denies any postmenopausal bleeding. Last year's Pap smear on 08/02/2016 showed ascus with positive high-risk HPV testing. Colposcopic examination by Dr. Sherwood was negative 08/24/2016. The patient states she has not been feeling well today. Review of Systems She has lost 40 pounds over the last year. She denies respiratory, cardiac or G.I. problems. However, she states she has not been eating much and her friend that is with her confirmed this. She has had changes in her narcotic pain medications and is now on morphine. She states that this is not new during the past 5 days. Past Medical History Past Medical History: Asthma, Fibromyalgia, GERD/Reflux, Hypertension, Musculoskeletal Disorder, Neurologic Disorder (Multiple sclerosis), Pneumonia Additional Past Medical History / Comment(s): MS for 22 yrs, NEUROGENIC BLADDER (STRAIGHT CATHS), uti's, uti with sepsis, hypokalemia and hyponatremia and elevated/fluctuating liver enzymes-worked up at [facility] and no cause found, iron deficiency anemia, lumbar DDD, L3 herniated disc, pinched nerve at L5 with R leg sciatica, chronic back pain, gait dysfunction, balance issues, falls, incisional and umbilical hernias, stomach ulcers, numbness and tingling bilateral feet. 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 FSH on 2016 was 79.3. History of Any Multi-Drug Resistant Organisms: None Reported Past Surgical History: Appendectomy, Bariatric Surgery, Bladder Surgery, Cholecystectomy, Orthopedic Surgery, Uterine Ablation Additional Past Surgical History / Comment(s): Mediport to left chest, Joseline-en- Y BARIATRIC SX 1999 with 165# wt loss, 2001 ABDOMINOPLASTY AND BREAST AUGMENTATION, PAIN INJECTIONS to back AT OA, pubovaginal sling, cystoscopy, cold knife conization, D&C, R foot ORIF with pins. Past Anesthesia/Blood Transfusion Reactions: No Reported Reaction Past Psychological History: Anxiety, Bipolar, Depression Additional Psychological History / Comment(s): Pt resides normally alone. She recently went to stay with her father d/t back/hip pain and increased weakness in legs. Pt normally can walk unassisted. She does have a walker if needed. 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 Smoking Status: Never smoker Past Alcohol Use History: None Reported Past Drug Use History: None Reported, Marijuana, Opiates Additional History: She is and has been with her boyfriend since 2016. She does not live with him. 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 - Past Family History Father Family Medical History: Coronary Artery Disease (CAD), Hypertension Additional Family Medical History / Comment(s): DAD IS 72 years old. He had a AR at the age of 60 yrs. He has had CABG. Mother Family Medical History: No Reported History Additional Family Medical History / Comment(s): Mother had a closed head injury from a MVA and deteriorated over time. She is . Medications and Allergies Home Medications Medication Instructions Recorded Confirmed Type Oxybutynin Chloride [Ditropan] 5 mg PO TID 01/15/14 08/29/17 History Gabapentin [Neurontin] 800 mg PO TID 12/21/15 08/29/17 History Ibuprofen [Motrin] 800 mg PO TID PRN 12/21/15 08/29/17 History Lisinopril-Hctz 10-12.5 mg 1 tab PO QAM 12/21/15 08/29/17 History [Zestoretic 10-12.5] DULoxetine HCL 60 mg PO QAM 03/25/16 06/14/17 History L.acidoph,Paracasei, B.lactis 1 cap PO DAILY 03/29/16 08/29/17 History [Probiotic] Fingolimod HCl [Gilenya] 0.5 mg PO DAILY 06/14/17 08/29/17 History Lisinopril-Hctz 10-12.5 mg tab PO DAILY 08/29/17 History [Zestoretic 10-12.5] Morphine Sulfate ER [Ms Contin] tab PO RT-Q12H 08/29/17 History Allergies Allergy/AdvReac Type Severity Reaction Status Date / Time walnut Allergy Intermediate tongue and Verified 08/29/17 15:16 throat itch cantaloupe Allergy Intermediate tongue and Uncoded 08/29/17 15:16 throat itches Exam - Vital Signs Vital signs: Vital Signs Temp Pulse BP 08/29/17 15:16 96.1 F L 86 77/42 Intake and Output 08/29/17 08/29/17 08/29/17 06:59 14:59 22:59 Other: Weight 76.204 kg Height 5'6", BMI 27.1. Repeat blood pressure 88/60. This is a well-developed well-nourished white female who is slightly lethargic and oriented times 3 in no acute distress. The patient appears somewhat pale. HEENT: Within normal limits. NECK: Supple without mass or thyromegaly. CHEST AND LUNGS: Clear to auscultation. HEART: Regular rate and rhythm. BREASTS: Are without mass or discharge. AXILLARY EXAM: Negative for adenopathy. BACK: Negative for CVA tenderness. ABDOMEN: Soft, nontender, without palpable masses. PELVIC EXAM: Normal external genitalia with mild atrophy. Cervix appears flush with the back of the vagina and appears stenotic with atrophy . The vagina appear normal with mild atrophy. There is no unusual discharge. There is no evidence of prolapse. The uterus is midposition, nongravid size and nontender. There are no palpable adnexal masses or tenderness. RECTAL EXAM: rectovaginal exam is negative for mass or tenderness and is negative for occult blood. EXTREMITIES: Nontender. IMPRESSION: 1. 51-year-old menopausal female with normal gynecologic exam. 2. Hypotension, generalized pallor and malaise. 3. History of ascus Pap smear and positive high-risk HPV testing on 07/23/2016 with negative colposcopy on 08/24/2016. 4. Multiple medical problems. PLAN: 1. Pap smear with high-risk HPV testing was obtained (cotest). 2. Mammogram was scheduled but this was canceled since the patient is being sent to the emergency room. 3. Because of the hypotension, pallor and not feeling well the patient was sent to the emergency center. Dr. Luis's office was notified of her signs and symptoms and he agrees with her going to emergency room. 4. The patient went directly to the emergency room. 5. Mammogram is due. A mammogram order slip will be sent to the patient since she did not have it done today. 6. She will return in one year. She will also follow up with Dr. Luis for her ongoing medical care.
== END | disposition home or self-care (01) ==
LOC: WWCWWP 13:56
PROVIDERS: ATTEND Obstetrics & Gynecology
DX: Z53.9 Procedure and treatment not carried out, unspecified reason (principal)

== ENCOUNTER → 2017-10-16 | Outpatient (CLI) | payer MEDICARE, OTHER ==
[2017-10-16 16:53] LABS: Anisocytosis Slight; Basophils % (A) 0 %; Eosinophils % (A) 2 %; HCT 32.9 % (34.0-46.0); HGB 9.8 gm/dL (11.4-16.0); Hypochromasia Marked; Lymphocytes # (A) 0.1 k/uL (1.0-4.8); Lymphocytes % (A) 7 %; MCH 24.2 pg (25.0-35.0); MCHC 29.8 g/dL (31.0-37.0); MCV 81.4 fL (80.0-100.0); Mean Platelet Volume 7.3; Microcytosis Slight; Monocytes # (A) 0.1 k/uL (0-1.0); Monocytes % (A) 6 %; Neutrophils # (A) 1.7 k/uL (1.3-7.7); Neutrophils % (A) 81 %; Platelet Count 249 k/uL (150-450); RBC 4.04 m/uL (3.80-5.40); RDW 19.6 % (11.5-15.5)
[2017-10-16 16:54] LABS: WBC 2.1 k/uL (3.8-10.6)
[2017-10-16 16:55] LABS: Ionized Calcium 4.9 mg/dL (4.5-5.3)
[2017-10-16 17:00] LABS: ALT 74 U/L (9-52); AST 70 U/L (14-36); Albumin 2.3 g/dL (3.5-5.0); Alkaline Phosphatase 160 U/L (38-126); Anion Gap 5 mmol/L; Blood Urea Nitrogen 12 mg/dL (7-17); Calcium 8.1 mg/dL (8.4-10.2); Carbon Dioxide 23 mmol/L (22-30); Chloride 107 mmol/L (98-107); Glucose 80 mg/dL (74-99); Potassium 3.1 mmol/L (3.5-5.1); Sodium 135 mmol/L (137-145); Total Bilirubin 0.4 mg/dL (0.2-1.3); Total Protein 4.3 g/dL (6.3-8.2)
[2017-10-17 01:44] LABS: Folate, Serum 17.9 ng/mL; Iron Saturation 6.47 (12.00-45.00); Vitamin D 25 Hydroxy 86.3 ng/mL (30.0-100.0)
[2017-10-17 02:05] LABS: Parathyroid Hormone Intact 158.5 pg/mL (14.0-72.0)
[2017-10-19 11:51] LABS: Methylmalonic Acid 0.17 umol/L (<0.40)
[2017-10-19 12:35] LABS: Vitamin E (Alpha Tocopherol) <459 ug/dL (500-1800)
== END | disposition home or self-care (01) ==
LOC: LABWHC1 15:41
PROVIDERS: ATTEND Internal Medicine
DX: M54.5 Low back pain (principal); M79.604 Pain in right leg; R60.0 Localized edema; D51.9 Vitamin B12 deficiency anemia, unspecified; M26.609 Unspecified temporomandibular joint disorder, unspecified side
CPT/HCPCS: 36415; 80053; 82306; 82330; 82525; 82607; 82728; 82746; 82747; 83090; 83540; 83550; 83921; 83970; 84207; 84446; 84590; 85025

== ENCOUNTER 2018-03-29 10:07 | Day surgery (SDC) | payer MEDICARE, OTHER ==
[2018-03-29 10:39] VITALS: TEMP 97.7
[2018-03-29] MEDS ORDERED: LACTATED RINGERS 1,000 ML IV ONE ×2 (11:04)
[2018-03-29] MEDS ORDERED: LACTATED RINGERS 1,000 ML IV SCH (11:06)
[2018-03-29] MEDS ORDERED: LIDOCAINE 1% 20 ML VIAL (10MG/ML) FOR IV START INTRADERMA PRN (11:06)
[2018-03-29] MEDS ORDERED: METOCLOPRAMIDE 5 MG/ML 2 ML VIAL IVP ONE (11:08)
[2018-03-29] MEDS ORDERED: PROPOFOL 10 MG/ML 20 ML VIAL IV ONE (11:57)
[2018-03-29] MEDS ORDERED: LIDOCAINE 1% INJ 10MG/ML (20 ML MDV) ONE (11:57)
[2018-03-29] MEDS ORDERED: fentaNYL (PF) 50 MCG/ML 2 ML AMP ONE (11:57)
[2018-03-29 12:32] VITALS: RESP 16
--- NOTE | 2018-03-29 12:36 | P.PCN ---
Date of Procedure: 03/29/18 Description of Procedure: Brief history: The patient is a pleasant 52-year-old female with a known history of MS who presented in the outpatient setting for complaints of unintentional weight loss , nausea and change in bowel habits. The patient reports significant weight loss in relation to decreased appetite and frequent nausea. In addition she reports that she has had more constipation. She has had significant unintentional weight loss. No prior colonoscopy reported. Procedure performed: Esophagogastroduodenoscopy with biopsy Failed/aborted Colonoscopy due to poor prep Estimated blood loss: Minimal. Preoperative diagnosis: Anesthesia: MAC Procedure: After informed consent was obtained from the patient was brought into the endoscopy unit and IV sedation was administered by anesthesia under continuous monitoring. Initially upper endoscopy was done. The Olympus GF 190 video endoscope was inserted inserted into the mouth and esophagus intubated without any difficulty and was gradually advanced into the remnant stomach, past the anastomosis and into the small bowel limb of the Joseline-en-Y. No small bowel abnormalities were noted. Scope was then withdrawn back into the remnant stomach where mild gastritis was noted and biopsies were taken. The scope was then withdrawn into the esophagus. The GE junction was located at 34 cm to the incisors. It appeared regular with no erythema erosions or ulcerations. Rest of the esophagus appeared normal. Patient tolerated the procedure well. At this time the patient continued to remain sedation. Initial digital rectal examination was normal. Olympus CF 190 video colonoscope was then inserted into the rectum and gradually advanced to 50 cm from the anal verge. A copious amount of thick stool was present throughout the colon which impeded visualization of the mucosa. The procedure was aborted. Patient tolerated the procedure well. Impression: 1. Anatomy consistent with prior Joseline-en-Y surgery noted. Mild gastritis in the remnant stomach, biopsies taken. 2. Copious stool from the anal verge to 50 cm into the colon, prohibiting visualization. Colonoscopy aborted Recommendations: Findings of this examination were discussed with the patient. Continue PPI therapy. Okay for diet. Continue dietary supplementation. Repeat colonoscopy in 3-6 months with 2 day prep.
[2018-03-29 12:59] VITALS: BP 113/75; PULSE 80
== END 2018-03-29 13:10 | disposition home or self-care (01) ==
LOC: ORWHC2ENDO 10:07
PROVIDERS: ATTEND Internal Medicine
DX: K21.9 Gastro-esophageal reflux disease without esophagitis (principal); K29.50 Unspecified chronic gastritis without bleeding; R19.4 Change in bowel habit; R63.4 Abnormal weight loss; Z98.84 Bariatric surgery status; J45.909 Unspecified asthma, uncomplicated; M79.7 Fibromyalgia; G35 Multiple sclerosis; Z79.1 Long term (current) use of non-steroidal anti-inflammatories (NSAID); Z79.891 Long term (current) use of opiate analgesic; Z79.899 Other long term (current) drug therapy; Z91.018 Allergy to other foods
CPT/HCPCS: 88305; 43239; 45330; J2765; J2001; J3010; J2704; 45378